=== PATIENT | male | born 1960 | race Hispanic/Latino ===

== ENCOUNTER 2016-05-13 15:02 | Inpatient (IN) | payer MEDICARE, OTHER ==
--- NOTE | 2016-05-13 16:05 | ED PDOC ---
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 he denies lightheadness, chest pain, dizziness, sob, or syncope but is unsure how he fell. Past Medical History - Infectious Disease Hx of Infectious Diseases: None - Tetanus Immunization Tetanus Immunization: Up to Date - Cardiac Hx Pacemaker: No - Pulmonary Hx Respiratory Disorders: Yes Hx Chronic Obstructive Pulmonary Disease (COPD): Yes - Neurological Hx Paralysis: No Other/Comment: nuropathy. - HEENT Hx HEENT Disorder: No - Renal Hx Renal Disorder: No - Endocrine/Metabolic Hx Endocrine Disorders: Yes Other/Comment: lymes - Hematological/Oncological Hx Blood Transfusions: No - Integumentary Hx Dermatological Disorder: No - Musculoskeletal/Rheumatological Hx Musculoskeletal Disorders: Yes Hx Gout: Yes - Gastrointestinal Hx Gastrointestinal Disorders: No - Genitourinary/Gynecological Hx Genitourinary Disorders: No - Psychiatric Hx Emotional Abuse: No Hx Physical Abuse: No Hx Substance Use: No - Surgical History Hx Cardiac Catheterization: Yes Hx Cholecystectomy: Yes Hx Gastric Bypass Surgery: Yes (Sleeve) - Anesthesia Hx Anesthesia: Yes Hx Anesthesia Reactions: No Hx Malignant Hyperthermia: No - Suicidal Assessment Feels Threatened In Home Enviroment: No Family/Social History Family/Social History: Other (nc) Smoking Status: Never Smoked Hx Alcohol Use: Yes ([employer]) Hx Substance Use: No Allergies/Home Meds Allergies/Adverse Reactions: Allergies cefuroxime axetil [From Ceftin] Allergy (Verified 05/13/16 15:18) ANAPHYLAXIS iodine Allergy (Verified 05/13/16 15:18) ANAPHYLAXIS Home Medications: Home Meds Medication Instructions Recorded Confirmed Allopurinol 300 mg PO DAILY 02/26/15 05/13/16 Gabapentin [Neurontin] 2,700 mg PO DAILY 02/26/15 05/13/16 Omeprazole [Prilosec] 20 mg PO DAILY 02/26/15 05/13/16 Cetirizine HCl [Zyrtec Allergy] 10 mg PO DAILY 05/23/15 05/13/16 Diclofenac Sodium [Voltaren] 75 mg PO BID 05/23/15 05/13/16 Folic Acid 1 mg PO DAILY 05/23/15 05/13/16 Alprazolam [Xanax] 2 mg PO TID 06/07/15 05/13/16 Ergocalciferol (Vitamin D2) 50,000 iu PO WED 08/21/15 05/13/16 [Vitamin D] Review of Systems - Physician Review All systems were reviewed & negative as marked: Yes - Review of Systems Constitutional: absent: Fevers Eyes: Vision Changes (chronic) Respiratory: absent: SOB, Cough Cardiovascular: absent: Chest Pain Gastrointestinal: absent: Abdominal Pain, Nausea, Vomiting Genitourinary Male: absent: Dysuria Musculoskeletal: Back Pain, Neck Pain Neurological: Headache Physical Exam Vital Signs Reviewed: Yes Vital Signs Temp Pulse Resp BP Pulse Ox 05/13/16 15:13 98.7 F 60 22 176/108 H 100 - Systems Exam Head: Present: Atraumatic, Normocephalic Pupils: Present: PERRL Extroacular Muscles: Present: EOMI Mouth: Present: Moist Mucous Membranes Neck: Present: Normal Range of Motion, MIDLINE TENDERNESS Respiratory/Chest: No: Respiratory Distress, Accessory Muscle Use, Tender to Palpation Cardiovascular: Present: Regular Rate and Rhythm Abdomen: No: Tenderness, Distention Back: Present: Midline Tenderness (lower thoracic and lumbar) Upper Extremity: Present: Normal ROM, NORMAL PULSES, Tenderness (left upper arm and lateral shoulder), Neurovascularly Intact. No: Deformity Lower Extremity: Present: NORMAL PULSES, Neurovascularly Intact, Other (nl rom of knees and hips) Neurological: Present: GCS=15, CN II-XII Intact, Motor Func Grossly Intact, Normal Sensory Function Skin: Present: Warm, Dry Psychiatric: Present: Alert, Oriented x 3 Medical Decision Making - RAD Interpretation Radiology Orders: 05/13/16 16:00 CERVICAL SPINE W/O CONTRAST [CT] Stat HEAD W/O CONTRAST [CT] Stat CHEST ONE VIEW [RAD] Stat 05/13/16 16:01 DORSAL (THORACIC) SPINE [RAD] Stat HIP MIN 2V W/ PELVIS LT [RAD] Stat LS SPINE WITH OBL > 18 YRS OLD [RAD] Stat SHOULDER LEFT [RAD] Stat Disposition/Present on Arrival - Present on Arrival History of DVT/PE: Yes History of Uncontrolled Diabetes: No Urinary Catheter: No History of Decub. Ulcer: No History Surgical Site Infection Following: None
[2016-05-13 16:19] LABS: ADD MANUAL DIFF? NO
[2016-05-13 17:22] LABS: ALB/GLOB RATIO 1.2 (1.1-1.8); ALKALINE PHOSPHATASE 53 U/L (38-133); ALT/SGPT 15 U/L (7-56); AST/SGOT 41 U/L (15-59); BILIRUBIN,TOTAL 0.9 mg/dL (0.2-1.3); BLOOD UREA NITROGEN 17 mg/dL (7-21); CALCIUM 8.8 mg/dL (8.4-10.5); CARBON DIOXIDE 28 mmol/L (21-33); CHLORIDE 101 mmol/L (98-107); GFR AFRICAN-AMERICAN > 60; GLUCOSE,RANDOM 97 mg/dL (70-110); POTASSIUM 4.3 mmol/L (3.6-5.0); SODIUM 138 mmol/L (132-148); TOTAL PROTEIN 6.7 g/dL (5.8-8.3)
[2016-05-13 17:32] LABS: TROPONIN I 0.03 ng/mL
--- NOTE | 2016-05-13 17:58 | CT ---
CT cervical spine dated 05/13/2016. History: Trauma. Contiguous helical/transaxial sections of the cervical spine performed in standard fashion. Additional 2 dimensional sagittal and coronal reformats provided. Comparison made with CT scan of the cervical spine dated 02/26/2015. Total exam DLP = 708.05 mGy-cm. This CT exam was performed using one or more of the following dose reduction techniques: Automated exposure control, adjustment of the mA and/or kV according to patient size, and/or use of iterative reconstruction technique. Findings: The current study reveals no acute displaced or compression fracture. Vertebral bodies exhibit relatively normal stature. There is straightening of the normal cervical lordosis which could be due to patient positioning in the gantry however element of muscle spasm may contribute. . The vertebral bodies are otherwise normally aligned. Degenerative spondylosis seen most notably affecting C5-C6 and C6-C7 levels. At the C5-C6 level, there is disc space narrowing with cortical endplate irregularity as well as anterior and smaller posterior osteophyte formation. Small irregular disc bulge ridge complex asymmetrically larger on the left than right and contiguous with hypertrophic uncovertebral joints. Facets also hypertrophic. Changes result in central canal narrowing and moderate cord compression. . Exit foramina are stenotic bilaterally. At the C6-C7 level, minor anterior disc space narrowing with with small anterior osteophyte formation. Minimal asymmetric central and left-sided focal disc bulge. Changes appear to result in mild narrowing of the canal and possibly some mild cord compression centrally and to the left. The the left exit foramen appears narrowed and right exit foramen adequate. At the C4-C5 level, there is adequate disc height. No disc herniation. Minimal degenerative facet joint changes on the left side. Central canal and exit foramina appear adequate. At the C3-C4 level, there is adequate disc height. Minor degenerative squaring of the uncovertebral joints. Facets are hypertrophic right greater than left. Exit foramina are narrowed bilaterally right more so than left. The prevertebral and paraspinal soft tissues unremarkable. Note is made of small calcification in the posterior soft tissues at the C3 level likely representing calcification of the ligamentum nuchae. . Lung apices are clear. Impression: No acute fractures. Multilevel degenerative spondylosis most notably affecting the C5-C6 level as detailed above.
--- NOTE | 2016-05-13 18:10 | CT ---
CT scan brain dated 05/13/2016. Axial computed tomography images were obtained through the head/brain without intravenous contrast material. Comparison made with CT scan brain dated 05/23/2015. This CT exam was performed using one or more of the following dose reduction techniques: Automated exposure control, adjustment of the mA and/or kV according to patient size, and/or use of iterative reconstruction technique. Radiation dose: Total exam DLP = 852.44 mGy-cm. Findings There is a wedge-shaped area of low attenuation in the left mid to inferior frontal region that is of uncertain etiology however could represent a non hemorrhagic contusion, or sequela of old trauma/ ischemia. Recommend followup on studies such as MRI. In addition, there may also be some minimal chronic periventricular white matter ischemic changes. Note made of of mild vascular calcifications of both carotid siphons and vertebral arteries. The ventricular and sulcal size are within range of normal for this patient's stated age. No obvious extra-axial mass or collection identified on this noncontrast study. There are no acute calvarial fractures. The visualized paranasal and mastoid air complexes well-developed. Minimal mucosal thickening noted within a few ethmoid air cells. Impression: There is a wedge-shaped area of low attenuation in the left inferior frontal lobe which is of uncertain etiology. Rule out sequela of nonhemorrhagic contusion however sequela of old trauma or ischemia cannot be completely excluded. Follow-up MRI is recommended. Note these findings were discussed with Dr. Cooper at approximately 6 :08 p.m. with written down and read back verification.
[2016-05-13] MEDS ORDERED: Sodium Chloride 0.9% 1,000 ML IV STA (18:26)
[2016-05-13 18:28] LABS: BASO # 0.02 K/mm3 (0.0-2.0); BASO % 0.2 % (0.0-3.0); EOS % 0.3 % (1.5-5.0); GRAN # 10.12 (1.4-6.5); GRAN % 82.6 % (50.0-68.0); HEMATOCRIT 38.1 % (42.0-52.0); LYMPH # 1.1 (1.2-3.4); LYMPH % 9.2 % (22.0-35.0); MEAN CORPUSCULAR HEMOGLOBIN 32.2 pg (25.0-35.0); MEAN CORPUSCULAR HGB CONC 33.9 g/dl (31.0-37.0); MEAN PLATELET VOLUME 10.4 fl (7.0-11.0); MONO # 0.9 (0.1-0.6); MONO % 7.7 % (1.0-6.0); PLATELET COUNT 148 10^3/uL (120.0-450.0); WHITE BLOOD COUNT 12.2 10^3/ul (4.5-11.0)
[2016-05-13] MEDS: Morphine 4 mg/ml ISec IVP STA ×2 (19:16→19:22)
[2016-05-13] MEDS: Ergocalciferol 50,000 Intl Units Cap PO SCH (19:55)
[2016-05-13 23:02] VITALS: BMI 41.1
[2016-05-13] MEDS ORDERED: Oxycodone/Acetaminophen 5/325 mg Tab PO PRN (23:08)
--- NOTE | 2016-05-14 08:11 | RAD ---
PROCEDURE: CHEST RADIOGRAPH, 1 VIEW HISTORY: fall COMPARISON: 02/26/2015 FINDINGS: LUNGS: Clear. PLEURA: No pneumothorax or pleural fluid seen. CARDIOVASCULAR: Normal. OSSEOUS STRUCTURES: No significant abnormalities. VISUALIZED UPPER ABDOMEN: Normal. OTHER FINDINGS: None. IMPRESSION: No active disease.
--- NOTE | 2016-05-14 08:12 | RAD ---
PROCEDURE: Radiographs of the Left Shoulder HISTORY: fall pain COMPARISON: No prior. FINDINGS: BONES: Normal. No fracture. JOINTS: Acromioclavicular degenerative arthritis noted. Glenohumeral articulation unremarkable. SOFT TISSUES: Normal. OTHER FINDINGS: None. IMPRESSION: Acromioclavicular degenerative arthritis. No fracture.
--- NOTE | 2016-05-14 08:15 | RAD ---
PROCEDURE: Radiographs of the Lumbar Spine. Zero 8 HISTORY: fall pain COMPARISON: No prior. FINDINGS: BONES: Technically limited. No fracture identified. Grade 1 anterolisthesis at L5-S1. No clear evidence of spondylolysis. Evaluation limited. DISC SPACES: Unremarkable. OTHER FINDINGS: Vena caval filter. Possible porcelain gallbladder. IMPRESSION: Grade 1 spondylolisthesis of L5-S1 without definite spondylolysis. No acute fracture. Technically limited examination. Possible porcelain gallbladder.
--- NOTE | 2016-05-14 08:15 | RAD ---
HISTORY: fall pain COMPARISON: No prior. FINDINGS: BONES: Alignment maintained. No fracture. DISC SPACES: Normal. SOFT TISSUES: Normal. OTHER FINDINGS: None. IMPRESSION: Normal radiographs of the thoracic spine.
--- NOTE | 2016-05-14 08:44 | RAD ---
PROCEDURE: Left Hip and pelvis X-ray Radiographs. HISTORY: fall pain COMPARISON: None. FINDINGS: BONES: Normal. No fracture. JOINTS: Normal. SOFT TISSUES: Normal. OTHER FINDINGS: None. IMPRESSION: Negative study
--- NOTE | 2016-05-14 10:39 | CON ---
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 He slipped and fell while cleaning the stairway just prior to admission, which was 05/13/2016. Contusions, left hip, left shoulder and so was admitted to the hospital with e xtreme pain. X-rays of the hip and shoulder showed no fracture. X-rays of the spine dorsal, lumbar, and cervical showed no pathology such as fracture, just mild osteoarthritis of the dorsal lumbar spi ne and his cervical spine, but neurologically he is fine other than the mild neuropathy, he says. He also can do straight leg raising both lower extremities. Range of motion of the hip is very good as well as the shoulder. He does have osteoarthritis of the AC joint, left shoulder, and osteoarthriti s of the left knee, but he has been used to this. We are going to get him up out of bed, do aggressi ve therapy to minimize his bad effects of bed rest., to eliminate bed rest and get him moving and get his muscles strong so he could ambulate with a walker again, which he used before. So, because of h is large frame, we have to make sure these muscles get as much strength is possible, so he does not f all again. Hopefully, he could head home after the short stay at the [facility], but he must d o therapy at home to maintain his strength so things like this does not happen again. FINAL DIAGNOSIS: Multiple contusions mainly the left shoulder, left hip, and the dorsal lumbar spine . Parveen Mares DO cc: [id number] TT: 05/14/2016 10:38:53 Confirmation # [id number] Dictation # [id number] imani
--- NOTE | 2016-05-14 12:23 | CON ---
DATE: 05/14/2016 NEUROLOGY CONSULTATION REPORT REASON FOR CONSULTATION: Episode of passing out and abnormal CT head. HISTORY OF PRESENTING ILLNESS: The patient is a 56-year-old male who was brought in after he passed out. The patient said that he blacked out and fell a flight of stairs. The patient did not have any urinary incontinence or tongue-biting. He denies any focal weakness in arms or legs. As per the pa tient in the past, he was worked up for multiple sclerosis. He had white matter lesions on the MRI. He had a lumbar puncture done in the past, which was normal. Denies any focal weakness in arms or l egs. REVIEW OF SYSTEMS: Denies any headache, dizziness, chest pain. Positive for left shoulder pain. De nies any constipation, diarrhea, dysuria, pyuria, cough or sputum production. PAST MEDICAL HISTORY: Includes neuropathy. MEDICATIONS: At home included Prilosec, Neurontin, folic acid, Voltaren, Zyrtec, Xanax, and allopuri nol. ALLERGIES: CEFUROXIME, IODINE, AND AXETIL. SOCIAL HISTORY: He denies smoking, use of alcohol or illicit drugs. FAMILY HISTORY: Noncontributory to the case. PHYSICAL EXAMINATION: GENERAL: The patient is a middle-aged male, sitting in no acute distress. VITAL SIGNS: His blood pressure is 140/86. Heart rate is 69 per minute, breathing at the rate of 16 per minute, temperature 98 degrees Fahrenheit. HEENT: Normocephalic, atraumatic. NECK: Supple. There are no carotid bruits. LUNGS: Clear. CARDIOVASCULAR: S1, S2 audible. No murmurs. ABDOMEN: Soft, nontender. Bowel sounds present. NEUROLOGIC EXAMINATION: MENTAL STATUS: The patient is awake, alert, oriented to time, place, and person. Speech is fluent. Naming and repetition are normal. Memory and cognition are intact. CRANIAL NERVES: Pupils are 4 mm bilaterally reactive to light. Visual mcgrath are full. Extraocular movements are intact. There is no facial asymmetry. Palate is upgoing bilaterally, and tongue is m idline. MOTOR: Tone is normal. Power is 5/5 bilaterally in all extremities. Reflexes +2 and symmetrical in upper extremities, +1 in bilateral knee jerk and absent in the ankle. Plantars are downgoing bilate rally. CEREBELLAR: Ssyaze-ai-qowy shows no dysmetria. Gait is deferred at the moment. SENSORY: There is decreased soft touch in the feet. LABORATORY DATA: Labs reviewed show WBC of 12.2, hemoglobin 12.9, hematocrit 38.1, and platelets of 148. Sodium is 138, potassium 4.3, chloride 101, carbon dioxide 28, BUN of 17, creatinine 1.0, and g lucose of 112. He had a CT scan of the head done, which showed a wedge-shaped area of low attenuation in the left i nferior frontal lobe, which is of uncertain etiology. IMPRESSION: 1. Syncope with the fall. Rule out seizure versus cardiac arrhythmias. 2. Abnormal CT scan of the head. 3. History of peripheral neuropathy. RECOMMENDATIONS: 1. The patient to have MRI of the brain with and without contrast. 2. The patient also to have an electroencephalogram. 3. The patient to have cardiac monitoring to look for evidence of any cardiac arrhythmia. 4. Please continue other treatment and supportive care. Thank you for the opportunity to participate in the care of this patient. Elizabeth Puentes MD cc: [id number] TT: 05/14/2016 12:23:00 Confirmation # [id number] Dictation # [id number] imani
--- NOTE | 2016-05-14 12:41 | HP ---
CHIEF COMPLAINT AND HISTORY OF PRESENT ILLNESS: This is a 56-year-old male who is coming into the [facility] with complaints of pain in the shoulders and the back and the neck. The patient states that h e had fallen. He says he had passed out. He had fallen down 8 stairs. He has no complaints of any chest pain. No nausea, no vomiting, no dysuria or frequency, no nocturia. He says he was having 5/1 0 pain. REVIEW OF SYSTEMS: All other review of symptoms are within normal limits. ALLERGIES: CEFUROXIME, IODINE. MEDICATIONS: Allopurinol, Neurontin, Prilosec, Zyrtec, Voltaren, folic acid, Xanax. SOCIAL HISTORY: No drug use, drinks socially. FAMILY HISTORY: Noncontributory. PAST MEDICAL HISTORY: Dyslipidemia. PAST SURGICAL HISTORY: Cholecystectomy, gastric bypass, fibromyalgia, spinal stenosis. PHYSICAL EXAMINATION: VITAL SIGNS: Temperature is 98, pulse 69, blood pressure 140/86, respirations 18, O2 saturation 97%. GENERAL: Patient lying in bed, flat, and in no apparent distress. HEAD AND NECK EXAM: Atraumatic, normocephalic. Conjunctivae are pink. Throat clear and mouth with moist mucosa. Oropharynx benign. EYES: Extraocular movements are intact. PERRLA. NECK: Supple. No JVD, thyromegaly, or adenopathy. No bruits. HEART: S1 and S2 regular rate and rhythm. No murmurs, rubs, or gallops. LUNGS: Clear to auscultation bilaterally. No wheezing rales or rhonchi appreciated. No retraction s on exam. ABDOMEN: Soft, nontender, nondistended. Bowel sounds are positive in all quadrants. No rebound. No hepatosplenomegaly. EXTREMITIES: No cyanosis, clubbing, or edema. In the left arm, there is ecchymotic area that is l arge. It is about 7-8 cm. NEURO: No facial asymmetry, tongue is midline, no uvula deviation. Power is 5/5 in upper extremity and 5/5 in lower extremity. Sensation is normal in upper extremity and lower extremity. PSYCH: Awake, alert, oriented x3. No anxiety or depression symptoms. Good insight. Normal affec t. : No CVA tenderness VASCULAR: 2+ pulses in carotid and pedal pulses. SKIN: No erythema or abnormal nodules noted. SPINE: Normal curvature. LYMPHADENOPATHY: No anterior cervical or posterior cervical adenopathy. No inguinal adenopathy. LABORATORY DATA: Labs have been reviewed. White count of 12.2. Creatinine is 1.0. He has had multiple x-rays. Thoracic spine x-ray done shows normal. The patient's shoulder x-ray sh ows no fractures. LS spine x-ray shows no fractures. There is L5-S1 spondylosis. He has a hip and pelvic x-ray that shows no fractures. CT of the head done shows wedge-shaped area o f low attenuation in the left inferior frontal lobe. Chest x-ray done shows no active disease. The patient had a cervical spine CT done that shows no acu te fractures, multiple degenerative changes in C5-C6. ASSESSMENT: 1. Syncope. 2. Neuropathy. 3. Anxiety. 4. Hyperuricemia. PLAN: The patient is comfortable, is going to be admitted to the hospital. I am concerned about a s yncopal episode. I will get cardiology and pulmonary evaluation. The patient is on gabapentin for n europathy. The patient has an MRI that needs to be done as well as an echo. We will continue to fol low closely. Place the patient on telemetry monitoring. Constantin Cervantes MD cc: [id number] TT: 05/14/2016 12:40:55 sn
[2016-05-14] MEDS: Pantoprazole 40 mg EC Tab PO SCH (12:58)
--- NOTE | 2016-05-14 15:31 | CON ---
DATE: 05/14/2016 HISTORY OF PRESENT ILLNESS: The patient is a 55-year-old male who presents after a fall down a fligh t of stairs complaining of neck, back and chest pain. PAST MEDICAL HISTORY: Notable for multiple neurologic issues related to his Lyme disease. The patie nt's past medical history also includes neuropathy. He denies smoking, denies history of cardiac dis ease. His latest evaluation included a stress test which showed normal ejection fraction of 73%. No angina noted. No shortness of breath noted. SOCIAL HISTORY: Denies smoking. REVIEW OF SYSTEMS: A 14-point review of systems was reviewed. The patient is depressed secondary to his Lyme disease and complains of diffuse body aches. PHYSICAL EXAMINATION: VITAL SIGNS: Blood pressure 140/86, heart rate is in the 60s. NECK: Negative JVD. LUNGS: Without rales. HEART: With S1, S2. EXTREMITIES: Without edema. LABORATORIES: Includes hemoglobin of 12.9. Chemistries: The troponin is negative x 1. The glucose is 112. EKG shows normal sinus rhythm with no acute changes. Echocardiogram is pending. IMPRESSION: 1. Status post fall. 2. Questionable syncope. 3. No cardiac arrhythmias noted. 4. Lyme disease. 5. Neuropathy. Given these findings, the patient is scheduled for an echocardiogram. There is no evidence so far of a cardiac cause of his fall down the stairs. Gerald Marcelo MD cc: [id number] TT: 05/14/2016 15:30:28 Confirmation # [id number] Dictation # [id number] reno
--- NOTE | 2016-05-14 15:49 | CARD ---
APPROVED REPORT EXAM: Two-dimensional and M-mode echocardiogram with Doppler and color Doppler. INDICATION Syncope 2D DIMENSIONS Left Atrium (2D)4.2 (1.6-4.0cm)IVSd1.2 (0.7-1.1cm) LVDd5.2 (3.9-5.9cm)PWd1.2 (0.7-1.1cm) LVDs3.3 (2.5-4.0cm)FS (%) 36.1 % LVEF (%)65.3 (>50%) M-Mode DIMENSIONS Aortic Root3.50 (2.2-3.7cm)Aortic Cusp Exc.2.10 (1.5-2.0cm) Aortic Valve AoV Peak Iiyjuesv553.0cm/Faustina Peak GR.9mmHg Mitral Valve MV E Vtccmpgj83.7cm/sMV A Tzkrvrjn98.4cm/sE/A ratio1.1 TDI E/Lateral E'0.0E/Medial E'0.0 Tricuspid Valve TR Peak [id number]/sRAP [id number] Peak Gr.13mmHg [id number] LEFT VENTRICLE The left ventricle is normal size. There is borderline concentric left ventricular hypertrophy. The left ventricular function is normal. The left ventricular ejection fraction is within the normal range. There is normal LV segmental wall motion. Transmitral Doppler flow pattern is Grade I-abnormal relaxation pattern. RIGHT VENTRICLE The right ventricle is mildly dilated. There is normal right ventricular wall thickness. The right ventricular systolic function is normal. ATRIA The left atrium is borderline dilated. The right atrium size is normal. AORTIC VALVE The aortic valve is not well visualized. MITRAL VALVE The mitral valve is not well visualized. TRICUSPID VALVE There is no pulmonary hypertension. GREAT VESSELS The aortic root is normal in size. The IVC is normal in size and collapses >50% with inspiration. PERICARDIAL EFFUSION There is no pericardial effusion. <Conclusion> Poor Echo window The left ventricle is normal size. There is borderline concentric left ventricular hypertrophy. The left ventricular function is normal. The left ventricular ejection fraction is within the normal range. Transmitral Doppler flow pattern is Grade I-abnormal relaxation pattern.
--- NOTE | 2016-05-14 18:53 | CARD ---
APPROVED REPORT EKG Measurement Heart [id number] <Conclusion> Normal sinus rhythm Right bundle branch block Abnormal ECG
[2016-05-15 08:25] LABS: ADD MANUAL DIFF? NO
[2016-05-15 08:28] LABS: BASO # 0.01 K/mm3 (0.0-2.0); BASO % 0.2 % (0.0-3.0); EOS # 0.1 (0.0-0.7); EOS % 2.3 % (1.5-5.0); GRAN # 3.48 (1.4-6.5); GRAN % 56.5 % (50.0-68.0); HEMATOCRIT 29.1 % (42.0-52.0); LYMPH # 1.6 (1.2-3.4); LYMPH % 25.7 % (22.0-35.0); MEAN CELL VOLUME 93.9 fL (80.0-105.0); MEAN CORPUSCULAR HEMOGLOBIN 31.6 pg (25.0-35.0); MEAN CORPUSCULAR HGB CONC 33.7 g/dl (31.0-37.0); MEAN PLATELET VOLUME 9.3 fl (7.0-11.0); MONO # 0.9 (0.1-0.6); MONO % 15.3 % (1.0-6.0); PLATELET COUNT 103 10^3/uL (120.0-450.0); RED CELL DISTRIBUTION WIDTH 14.5 % (11.5-14.5); WHITE BLOOD COUNT 6.2 10^3/ul (4.5-11.0)
[2016-05-15] MEDS: Pantoprazole 40 mg EC Tab PO SCH (08:30)
--- NOTE | 2016-05-15 08:36 | PN ---
DATE: 05/15/2016 The patient is asymptomatic, but is depressed. PHYSICAL EXAMINATION: VITAL SIGNS: Blood pressure is 140/86, the heart rate is in the 60s, normal sinus rhythm. NECK: Negative JVD. LUNGS: Without rales. HEART: Revealed S1, S2. EXTREMITIES: Without edema. Hemoglobin is 12.9. Chemistries: BUN and creatinine are unremarkable. Echocardiogram shows good LV function with no LV outflow obstruction. 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 IMPRESSION: 1. Status post fall. 2. No cardiac etiology identified for possible syncope. 3. History of Lyme disease. 4. Neuropathy. Given these findings, there is no cardiac cause identified for his possible near syncope. His cardiac status is stable. Review of his previous stress test, which was not diagnostic, but poss ible ischemia, in which the patient refused catheterization in the past. The patient is currently ch est pain free. We will discontinue telemetry today. His depression might benefit from evaluation with psychiatry. Gerald Marcelo MD cc: [id number] TT: 05/15/2016 08:35:21 Confirmation # [id number] Dictation # [id number] en
[2016-05-15 08:39] LABS: ALB/GLOB RATIO 1.1 (1.1-1.8); ALKALINE PHOSPHATASE 43 U/L (38-133); ALT/SGPT 32 U/L (7-56); AST/SGOT 45 U/L (15-59); BILIRUBIN,TOTAL 0.9 mg/dL (0.2-1.3); BLOOD UREA NITROGEN 19 mg/dL (7-21); CALCIUM 8.5 mg/dL (8.4-10.5); CARBON DIOXIDE 30 mmol/L (21-33); CHLORIDE 100 mmol/L (95-110); GFR AFRICAN-AMERICAN > 60; GLUCOSE,RANDOM 97 mg/dL (70-110); POTASSIUM 4.5 mmol/L (3.6-5.0); SODIUM 137 mmol/L (132-148); TOTAL PROTEIN 6.2 g/dL (5.8-8.3)
[2016-05-15] MEDS ORDERED: Gadodiamide 287 MG/ML VIAL (20ML) IV ONE (09:02)
--- NOTE | 2016-05-15 09:46 | EEG ---
DATE: 05/14/2016 INTRODUCTION: This is a digitally recorded EEG monitoring using standard EEG montages. BACKGROUND RHYTHM: The EEG shows a background activity of 9 Hz alpha activity in parietooccipital re gion. The EEG activity is bilaterally symmetrical and synchronous. There is attenuation of the back ground activity on eye opening. No sleep recording was noted. ABNORMAL POTENTIALS: No spikes, sharp waves or focal slowing was seen. PHOTIC STIMULATION AND HYPERVENTILATION: Photic stimulation did not reveal any abnormality. Hyperve ntilation was not performed. IMPRESSION: Normal electroencephalogram. No epileptiform activity seen in this electroencephalogram recording. Elizabeth Puentes MD cc: [id number] TT: 05/15/2016 09:45:55 Confirmation # [id number] Dictation # [id number] mn
[2016-05-15] MEDS: Ergocalciferol 50,000 Intl Units Cap PO SCH (09:56)
--- NOTE | 2016-05-15 10:04 | PN ---
DATE: 05/15/2016 SUBJECTIVE: The patient is lying on the bed, in no acute distress. Denies having any headache or di zziness. PHYSICAL EXAMINATION: VITAL SIGNS: His blood pressure is 109/75, heart rate is 60 per minute, breathing at a rate of 16 pe r minute, temperature is 97.9 degrees Fahrenheit. HEENT: Normocephalic, atraumatic. NECK: Supple. There are no carotid bruits. LUNGS: Clear. CARDIOVASCULAR: S1, S2 audible. No murmurs. ABDOMEN: Soft and nontender with bowel sounds present. NEUROLOGIC EXAMINATION: MENTAL STATUS: The patient is awake and alert, oriented to time, place, person. Speech is fluent. Naming and repetition normal. Memory and cognition appears intact. CRANIAL NERVE EXAMINATION: Pupils are 3 mm bilaterally reactive to light. Visual mcgrath are full. Extraocular movements are intact. There is no facial asymmetry. Palate is upgoing bilaterally and t ongue is midline. MOTOR EXAMINATION: Tone is normal. Power in the upper extremities is 5/5. Power in the lower extre mity 4 to 5/5 bilaterally. Plantars downgoing bilaterally. LABORATORY DATA: Labs reviewed, shows WBC of 6.2, hemoglobin 9.8, hematocrit 29.1, platelets of 103. His sodium is 137, potassium 4.5, chloride 100, carbon dioxide 30, BUN of 19, creatinine 1.0 and gl ucose of 97. IMPRESSION: 1. Status post syncope. 2. History of peripheral neuropathy. 3. Abnormal CT scan of the head. RECOMMENDATIONS: 1. The patient had an electroencephalogram done which is normal. 2. The patient just had MRI of the brain done, report is awaited. 3. The patient to have physical therapy for gait imbalance. 4. The patient to be continued to have cardiac monitoring to rule out any cardiac arrhythmias. 5. Please follow up the report of MRI of the brain. 6. The patient is a good candidate for subacute rehab placement. 7. Please continue other treatment and supportive care. Thank you for the opportunity to participate in the care of this patient. Elizabeth Puentes MD cc: [id number] TT: 05/15/2016 10:03:56 Confirmation # [id number] Dictation # [id number] jn
--- NOTE | 2016-05-15 10:18 | DS ---
This is a 56-year-old male who came into the hospital after he had a fall down the stairs. He had a syncopal episode. The patient is currently on telemetry monitoring. He is being followed by cardiol ogy and neurology. He states he feels well, has no complaints, no headaches or dizziness, no nausea, no vomiting. An echo done shows LV is normal size, there is borderline LVH, his EF is within normal limits. The patient is awaiting his MRI to be done. He denies palpitations, no headaches, no dizzi ness, no nausea. PHYSICAL EXAMINATION: VITAL SIGNS: Temperature is 98, pulse is 69, blood pressure is 140/86, respirations are 18, O2 satur ation 97%. GENERAL: The patient comfortable, in no acute distress. HEENT: Anicteric sclerae. Moist mucosa. NECK: No JVD or adenopathy. CARDIAC: S1/S2. No murmurs. No rubs. Regular. RESPIRATORY: Clear to auscultation bilaterally. No wheezes, rales, or rhonchi. Good air entry. ABDOMEN: Bowel sounds are positive, soft, nontender, and nondistended. EXTREMITIES: No edema. Has 1+ pulses. ASSESSMENT: 1. Syncope. 2. Peripheral neuropathy. 3. Anxiety. 4. Hyperuricemia. 5. Obese with body mass index of 41. PLAN: The patient is currently comfortable. He is on vitamin D. He is going to continue with Motri n for his pain. He prefers this over narcotics. He is on gabapentin for his neuropathy. He is on X anax for his anxiety. He is going to continue with allopurinol for his hypouricemia. An MRI and an EEG has been ordered and is pending. We will await further input from the neurologist as well as the results of these tests. If there are no significant abnormalities, we will discharge the patient ho me. The patient was also seen by Dr. Mares, no surgical intervention is needed at this point. Constantin Cervantes MD cc: [id number] TT: 05/15/2016 10:18:18 cn
--- NOTE | 2016-05-15 11:27 | MRI ---
PROCEDURE: MRI BRAIN WITH AND WITHOUT CONTRAST HISTORY: abnormal ct head COMPARISON: CT scan 05/13/2016 TECHNIQUE: Multiplanar, multisequence MR images of the brain were obtained with and without intravenous contrast enhancement. 20 cc of Omniscan FINDINGS: HEMORRHAGE: None DWI: No evidence of an acute or early subacute infarction. BRAIN PARENCHYMA: No mass,mass effect or edema. The area of hypodensity seen in the left frontal lobe on CT does not show a corresponding abnormality on MRI. This was most likely artifactual. Mild chronic microvascular changes are seen in the periventricular white matter. ENHANCEMENT: No abnormal intracranial enhancement. VENTRICLES: Unremarkable. No hydrocephalus. CRANIUM: Unremarkable. ORBITS: Grossly unremarkable. PARANASAL SINUSES/MASTOIDS: Clear VASCULAR SYSTEM: Skull base flow voids intact. OTHER FINDINGS: None . IMPRESSION: Unremarkable pre and post contrast enhanced MRI of the brain.
[2016-05-16] MEDS ORDERED: oxyCODONE 10 mg Immediate Release Tab PO STA (08:12)
[2016-05-16] MEDS: Pantoprazole 40 mg EC Tab PO SCH (09:50)
[2016-05-16] MEDS: Ergocalciferol 50,000 Intl Units Cap PO SCH (09:52)
--- NOTE | 2016-05-16 10:30 | DS ---
SUBJECTIVE: This is a 56-year-old male who had come into the hospital and had a syncopal episode. T he patient was evaluated by cardiology and neurology. Please see the note that was dictated yesterda y on 05/15/2016 for details. The patient did have an MRI. It was unremarkable, pre and post-contrast MRI. The initial CAT scan that was seen was considered an artifact. The patient had an EEG done marina t was normal. Physical therapy evaluated the patient, and he does not require inpatient physical the rapy. The patient will be discharged home to follow up as an outpatient. No complaints of any chest pain or shortness of breath, or headaches or dizziness. PHYSICAL EXAMINATION: VITAL SIGNS: Temperature is 98.8, pulse is 71, blood pressure 148/90, respirations 18, O2 saturation 98%. GENERAL: The patient comfortable, in no acute distress. HEENT: Anicteric sclerae. Moist mucosa. NECK: No JVD or adenopathy. CARDIAC: S1/S2. No murmurs. No rubs. Regular. RESPIRATORY: Clear to auscultation bilaterally. No wheezes, rales, or rhonchi. Good air entry. ABDOMEN: Bowel sounds are positive, soft, nontender, and nondistended. EXTREMITIES: No edema. Has 1+ pulses. ASSESSMENT: 1. Syncope. 2. Peripheral neuropathy. 3. Anxiety. 4. Hyperuricemia. 5. Obese with a body mass index of 41. PLAN: The patient is on vitamin D replacement is going to continue with ibuprofen. He is going to be on Xa nax for his anxiety. He does have a history of PTSD and has been following with psychiatry as an out patient. He is willing to be on a heart healthy diet. CONDITION: Stable. I did speak to Dr. Marcelo regarding the case. He is okay that the patient be disc harged. ACTIVITIES: Increase as tolerated. Constantin Cervantes MD cc: [id number] TT: 05/16/2016 10:29:37 an
--- NOTE | 2016-05-16 11:33 | PN ---
DATE: 05/16/2016 SUBJECTIVE: The patient is comfortable without shortness of breath, without chest pain. PHYSICAL EXAMINATION: VITAL SIGNS: Blood pressure is 133/76, the heart rate is in the 70s. NECK: Negative JVD. LUNGS: Without rales. HEART: Reveals S1, S2. EXTREMITIES: Without edema. LABORATORIES: Echocardiogram has been unremarkable. IMPRESSION: 1. Status post syncope. 2. Status post fall with trauma. 3. History of Lyme disease. PLAN: Given these findings, I have reviewed his previous stress test with the patient in detail. I have discussed the small, but real possibility of still having significant coronary disease based on his stress test. I have discussed with the patient alternatives, including cardiac catheterization. After discussion of risk/benefit, the patient understands about cardiac catheterization and is agree able. We will schedule for Friday. Gerald Marcelo MD cc: [id number] TT: 05/16/2016 11:33:43 Confirmation # [id number] Dictation # [id number] tn
[2016-05-16 17:35] VITALS: BP 150/80; PULSE 70; RESP 18; TEMP 98.4; O2SAT 98
== END 2016-05-16 18:27 | disposition home or self-care (01) | DRG 605 ==
LOC: ED 15:02 → ERH 18:49 → 5RSO 22:08 → 3RSO 05-14 15:02 → OBSVTOIN 05-14 17:46
PROVIDERS: ADMIT Internal Medicine Nephrology; ATTEND Internal Medicine Nephrology
DX: S40.012A Contusion of left shoulder, initial encounter (principal); S70.02XA Contusion of left hip, initial encounter; S30.0XXA Contusion of lower back and pelvis, initial encounter; Z68.41 Body mass index [BMI] 40.0-44.9, adult; G62.9 Polyneuropathy, unspecified; M48.00 Spinal stenosis, site unspecified; F32.9 Major depressive disorder, single episode, unspecified; R55 Syncope and collapse; E78.5 Hyperlipidemia, unspecified; M79.7 Fibromyalgia; F41.9 Anxiety disorder, unspecified; E79.0 Hyperuricemia without signs of inflammatory arthritis and tophaceous disease; E66.9 Obesity, unspecified; F43.10 Post-traumatic stress disorder, unspecified; M17.12 Unilateral primary osteoarthritis, left knee; M19.012 Primary osteoarthritis, left shoulder; W10.9XXA Fall (on) (from) unspecified stairs and steps, initial encounter; B94.8 Sequelae of other specified infectious and parasitic diseases; Y93.E9 Activity, other interior property and clothing maintenance; Y92.9 Unspecified place or not applicable; Y92.008 Other place in unspecified non-institutional (private) residence as the place of occurrence of the external cause; Z98.84 Bariatric surgery status

== ENCOUNTER 2016-05-21 06:58 | Day surgery (SDC) | payer MEDICARE ==
[2016-05-17 12:08] VITALS: BMI 40.0
[2016-05-21] MEDS ORDERED: Lidocaine 2% Inj (20ml) ONE (07:27)
[2016-05-21] MEDS ORDERED: Phenylephrine 10 mg/ml Inj ONE (07:27)
[2016-05-21] MEDS ORDERED: Iohexol 350mgl/ml 50 ML ONE (07:28)
[2016-05-21] MEDS ORDERED: Iodixanol 320 MG/ML 100 ML BOTTLE IV ONE (07:28)
[2016-05-21] MEDS ORDERED: Iodixanol 320 MG/ML 200 ML BOTTLE IV ONE (07:28)
[2016-05-21] MEDS ORDERED: Nitroglycerin 50mg in D5W 250 ML IV ONE (07:28)
[2016-05-21 07:42] LABS: ADD MANUAL DIFF? NO
[2016-05-21 08:04] LABS: BASO # 0.02 K/mm3 (0.0-2.0); BASO % 0.5 % (0.0-3.0); EOS # 0.2 (0.0-0.7); EOS % 4.3 % (1.5-5.0); GRAN # 2.39 (1.4-6.5); GRAN % 54.7 % (50.0-68.0); HEMATOCRIT 28.2 % (42.0-52.0); LYMPH # 1.2 (1.2-3.4); MEAN CELL VOLUME 96.2 fL (80.0-105.0); MEAN CORPUSCULAR HEMOGLOBIN 31.7 pg (25.0-35.0); MEAN PLATELET VOLUME 9.3 fl (7.0-11.0); MONO # 0.6 (0.1-0.6); MONO % 13.5 % (1.0-6.0); PLATELET COUNT 145 10^3/uL (120.0-450.0); RED CELL DISTRIBUTION WIDTH 15.1 % (11.5-14.5); WHITE BLOOD COUNT 4.4 10^3/ul (4.5-11.0)
[2016-05-21 08:06] LABS: INR 1.08 (0.93-1.08); PARTIAL THROMBOPLASTIN TIME 26.4 Seconds (23.7-30.8)
[2016-05-21 08:08] LABS: BLOOD UREA NITROGEN 19 mg/dL (7-21); CALCIUM 8.4 mg/dL (8.4-10.5); CARBON DIOXIDE 32 mmol/L (21-33); CHLORIDE 100 mmol/L (98-107); CHOLESTEROL 123 mg/dL (130-200); GFR AFRICAN-AMERICAN > 60; GLUCOSE,RANDOM 86 mg/dL (70-110); POTASSIUM 4.2 mmol/L (3.6-5.0); SODIUM 135 mmol/L (132-148)
[2016-05-21] MEDS ORDERED: DiphenhydrAMINE 50 mg/ml Inj ONE (08:45)
[2016-05-21] MEDS ORDERED: Midazolam 2 MG/2 ML VIAL ONE ×2 (08:45→09:08)
[2016-05-21] MEDS ORDERED: Famotidine 20mg/50ml 50 ML IVPB ONE (08:46)
[2016-05-21] MEDS ORDERED: Sodium Chloride 0.9% 1,000 ML IV SCH (09:45)
[2016-05-21 09:58] VITALS: RESP 20; TEMP 98.1
--- NOTE | 2016-05-21 10:12 | CARDCATH ---
PROCEDURE DATE: 05/21/2016 HISTORY: The patient is a 56-year-old male who presents with chest pain and dyspnea. His stress ирина t was abnormal. The patient's past medical history is notable for Lyme disease, hypertension, palpitations, and recur rent chest pain. He suffers from obesity and hypercholesterolemia. Because of this, a cardiac alee terization was recommended. PROCEDURE: Left heart catheterization with coronary angiography and left ventriculogram. The right femoral artery was cannulated with a 6-Lithuanian sheath. There were no complications. The findings on catheterization revealed a left ventricle that contracted normally. Estimated ejecti on fraction is approximately 55%. His coronary anatomy revealed a right dominant circulation. The RCA was visualized and found to be unremarkable. The left main artery was unremarkable. The LAD and diagonal vessels revealed mild intimal irregularities without critical lesions. The circumflex artery and obtuse marginal branches were free of significant disease. Angio-Seal was used to close the femoral artery site. The patient tolerated the procedure well. In summary, the procedure revealed unremarkable coronary arteries with good LV function. Given these findings, the patient's stress test does not represent new coronary lesions. His dyspnea and palpitations are unrelated to his heart. Followup and instructions have been given to the patie nt in detail. Gerald Marcelo MD cc: [id number] TT: 05/21/2016 10:11:26 imani
[2016-05-21] MEDS ORDERED: Oxycodone/Acetaminophen 5/325 mg Tab ONE (13:16)
[2016-05-21] MEDS ORDERED: Oxycodone/Acetaminophen 5/325 mg Tab PO STA (13:21)
[2016-05-21 13:29] VITALS: PULSE 83
[2016-05-21 13:46] VITALS: BP 168/84; O2SAT 97
== END 2016-05-21 16:44 | disposition home or self-care (01) ==
LOC: CATH 06:58
PROVIDERS: ATTEND Internal Medicine Cardiovascular Disease
DX: R07.9 Chest pain, unspecified (principal); R00.2 Palpitations; I10 Essential (primary) hypertension; E78.00 Pure hypercholesterolemia, unspecified; E66.9 Obesity, unspecified; R94.39 Abnormal result of other cardiovascular function study
CPT/HCPCS: 36415; 80048; 80061; 85025; 85610; 85730; 86850; 86900; 93458; 99152; C1760; C1769; C2629; J1200; J1644; J2250; J2930; J3010; J7040 ×2; Q9967 ×2

== ENCOUNTER 2016-06-01 12:58 | Inpatient (IN) | payer MEDICARE, OTHER ==
--- NOTE | 2016-06-01 15:08 | ED PDOC ---
Arrival/HPI - General Chief Complaint: Abnormal Skin Integrity Time Seen by Provider: 06/01/16 13:23 Historian: Patient - History of Present Illness Narrative History of Present Illness (Text): 06/01/16 15:58 Patient is a 56 yo male, past medical history of left leg DVT, presents to ER complaining of swelling in his RIGHT leg for the past several days, with redness and pain and drainage that has developed over the past two days. He denies NEW left leg pain or swelling. States that he fell earlier in the month but has no new chest pain or shortness of breath or abdominal pain. No hemoptysis. No pleuritic chest pain. He has had pain to his left shoulder and back WITH MOVEMENTS "since I fell". Denies headache or shortness of breath. Denies hip or knee pain. Denies fevers or chills. Past Medical History - Infectious Disease Hx of Infectious Diseases: None - Tetanus Immunization Tetanus Immunization: Up to Date - Cardiac Hx Pacemaker: No - Pulmonary Hx Respiratory Disorders: Yes Hx Asthma: Yes Hx Chronic Obstructive Pulmonary Disease (COPD): Yes - Neurological Hx Paralysis: No Other/Comment: Neuropathy, fibromyalgia, chronic fatigue syndrome - HEENT Hx HEENT Disorder: No - Renal Hx Renal Disorder: No - Endocrine/Metabolic Hx Endocrine Disorders: Yes Other/Comment: lymes - Hematological/Oncological Hx Blood Transfusions: No - Integumentary Hx Dermatological Disorder: No - Musculoskeletal/Rheumatological Hx Musculoskeletal Disorders: Yes Hx Unsteady Gait: Yes Other/Comment: gout - Gastrointestinal Hx Gastroesophageal Reflux: Yes - Genitourinary/Gynecological Hx Genitourinary Disorders: No - Psychiatric Hx Emotional Abuse: No Hx Physical Abuse: No Hx Substance Use: No - Surgical History Hx Cholecystectomy: Yes Other/Comment: Gastric sleeve - Anesthesia Hx Anesthesia Reactions: No - Suicidal Assessment Feels Threatened In Home Enviroment: No Family/Social History Family/Social History: Unknown Family HX Smoking Status: Never Smoked Hx Alcohol Use: Yes ([employer]) Hx Substance Use: No Allergies/Home Meds Allergies/Adverse Reactions: Allergies cefuroxime axetil [From Ceftin] Allergy (Verified 06/01/16 13:15) ANAPHYLAXIS iodine Allergy (Verified 06/01/16 13:15) ANAPHYLAXIS Home Medications: Home Meds Medication Instructions Recorded Confirmed Allopurinol 100 mg PO DAILY 02/26/15 06/01/16 Omeprazole [Prilosec] 20 mg PO DAILY 02/26/15 06/01/16 Cetirizine HCl [Zyrtec] 10 mg PO DAILY 05/23/15 06/01/16 Diclofenac Sodium [Voltaren] 75 mg PO BID 05/23/15 06/01/16 Folic Acid 1 mg PO DAILY 05/23/15 06/01/16 Alprazolam [Xanax] 2 mg PO TID 06/07/15 06/01/16 Ergocalciferol (Vitamin D2) 50,000 iu PO WED 08/21/15 06/01/16 [Vitamin D2] Review of Systems - Review of Systems Constitutional: Fatigue. absent: Fevers Eyes: absent: Vision Changes, Eye Pain Respiratory: absent: SOB, Cough Cardiovascular: Edema, Calf Pain. absent: Chest Pain, VAZQUEZ, Orthopnea Gastrointestinal: absent: Abdominal Pain, Nausea, Vomiting Genitourinary Male: absent: Dysuria, Frequency Musculoskeletal: Back Pain, Other (right leg swelling and drainage). absent: Neck Pain Skin: Skin Lesions Neurological: absent: Headache, Dizziness, Focal Weakness Hemo/Lymphatic: absent: Easy Bleeding Physical Exam - Physical Exam Narrative Physical Exam (Text): Head: Atraumatic. Normocephalic. Eyes: PERRL. EOMI. Conjunctivae are not pale. ENT: Mucous membranes are moist and intact. Poor dentitition. No facial edema. Neck: Supple. Full ROM. No JVD. Cardiovascular: Regular rate. Regular rhythm. Distal pulses palpable. Pulmonary/Chest: No evidence of respiratory distress. Clear to auscultation bilaterally. No wheezing, rales or rhonchi. No rib cage crepitus or point tenderness. Abdominal: Distended, obese, nontender. Back: No CVA tenderness. Healing ecchmosis to left upper back/shoulder. Extremities: There is edema to right calf, tender to palpation with erythema, there are skin changes to left lower extremity, no drainage. Skin: Skin is erythematous to RIGHT calf/anterior savage, punctate lesion with no pus or active drainage or fluctuance currently. Neurological: Alert, awake, and oriented. No meningeal signs. Motor and sensory exam intact. Psychiatric: Good eye contact. Normal interaction, affect, and behavior. 06/01/16 16:02 Vital Signs Reviewed: Yes Vital Signs Temp Pulse Resp BP Pulse Ox 06/01/16 18:00 61 16 142/80 100 06/01/16 16:04 65 18 130/80 100 06/01/16 13:07 98 F 62 18 153/87 H 100 Temperature: Afebrile Blood Pressure: Hypertensive Appearance: Positive for: Non-Toxic Pain Distress: Mild Medical Decision Making ED Course and Treatment: Patient on examination has mild erythema and edema noted in the right leg greater than the left. He denies leg pain or acute swelling, but does report that he has had prior history of DVT in the LEFT leg over 20 years ago. He states that he has an IVC filter in place 20 years ago. He states he did get treated with blood thinners in the past but is not currently taking blood thinners. He denies any acute chest pain or shortness of breath. Of noted, patient was recently in ED for a fall earlier in the month. Recent CT head and MRI of brain reviewed, as well as recent chest xray and other imaging. He also has had recent cardiac catheterization which was unremarkable. Doppler ultrasound report reviewed directly with airframe technical officer, who reports that patient has NO DVT in the RIGHT leg but a POSITIVE DVT in the LEFT leg. This result was reviewed with radiologist, as well as with patient. He is not hypoxic, denies acute chest pain or dyspnea, has no pleuritic pain. Risks/benefits of heparin reviewed with patient. He has no history of active bleeding. Heparin bolus and drip ordered after review with pharmacy for DVT protocol. Case discussed with Dr. Kimball, covering for PMD, accepts admission. Patient reports allergy to IV contrast, stating that he has breathing difficulty when it was last administered to him. At this time, no chest pain or sob, although will be admitted to re-evaluate his symptoms and hx of dvt, ivc filter. Treatment plan reviewed with patient, agreeable to plan. - Lab Interpretations Lab Results: 06/01/16 15:00 06/01/16 15:00 Lab Results 06/01/16 15:00: WBC 4.6, RBC 3.69, Hgb 11.9 L, Hct 36.0 L, MCV 97.6, MCH 32.2, MCHC 33.1, RDW 15.2 H, Plt Count 202, MPV 9.0, Gran % 57.1, Lymph % (Auto) 29.0 , [place] % (Auto) 9.5 H, Eos % (Auto) 4.0, Baso % (Auto) 0.4, Gran # 2.60, Lymph # 1.3, [place] # 0.4, Eos # 0.2, Baso # 0.02, Sodium 140, Potassium 4.3, Chloride 102, Carbon Dioxide 27, Anion Gap 15, BUN 16, Creatinine 1.0, Est GFR ( Amer) > 60, Est GFR (Non-Af Amer) > 60, Random Glucose 74, Calcium 8.7, Total Bilirubin 1.3, AST 31, ALT 22, Alkaline Phosphatase 93, Total Protein 7.8, Albumin 4.2, Globulin 3.6, Albumin/Globulin Ratio 1.2 06/01/16 14:55: PT 11.3, INR 1.05, APTT 27.4, D-Dimer, Quantitative 15.25 H - RAD Interpretation Radiology Orders: 06/01/16 14:08 DUPLEX LOWER EXTRM VEIN BILAT [US] Stat 06/01/16 15:54 CHEST PORTABLE [RAD] Stat Balancer: Radiologist - EKG Interpretation EKG Interpretation (Text): 06/01/16 19:20 EKG at 17:23 sinus bradycardia rate of 46 with right bundle branch block Interpreted by ED Physician: Yes Type: 12 lead EKG - Medication Orders Current Medication Orders: Heparin Sodium/Sodium Chloride (Heparin 06663 Units/250ml 1/2 Normal Saline) 250 mls @ 19 mls/hr IV .[id number] PRN; Protocol PRN Reason: ADJUST RATE PER PROTOCOL Last Admin: 06/01/16 18:11 Dose: 19 MLS/HR Titration Intervention Document 06/01/16 18:11 RR (Rec: 06/01/16 18:13 RR [id number]) Titration Intake Container Volume 250 Titration Dosing Titration Dose 25,000 IV Rate 19 Intake/Decrease Start eMAR Start Stop Document 06/01/16 18:11 RR (Rec: 06/01/16 18:13 RR [id number]) Intravenous Solution Start Date 06/01/16 Start Time 18:13 Discontinued Medications Heparin Sodium (Porcine) (Heparin) 8,350 units IVP ONCE ONE Stop: 06/01/16 18:01 Last Admin: 06/01/16 18:05 Dose: 8,350 UNITS IVP Administration Document 06/01/16 18:05 RR (Rec: 06/01/16 18:08 RR [id number]) Charges for Administration # of IVP Administrations 1 Heparin Sodium/Sodium Chloride (Heparin 20283 Units/250ml 1/2 Normal Saline) 250 mls @ 12.24 mls/hr IV .[id number] PRN; Protocol PRN Reason: ADJUST RATE PER PROTOCOL Heparin Sodium/Sodium Chloride (Heparin 51294 Units/250ml 1/2 Normal Saline) 250 mls @ 18.8 mls/hr IV .[id number] PRN; Protocol PRN Reason: ADJUST RATE PER PROTOCOL Disposition/Present on Arrival - Present on Arrival Any Indicators Present on Arrival: Yes History of DVT/PE: Yes History of Uncontrolled Diabetes: No Urinary Catheter: No History of Decub. Ulcer: No History Surgical Site Infection Following: None - Disposition Have Diagnosis and Disposition been Completed?: Yes Diagnosis: DVT (deep venous thrombosis), Leg edema Disposition: HOSPITALIZED Disposition Time: 16:25 Patient Plan: Admission, Telemetry Patient Problems: Current Active Problems Problem Status Diagnosed Multiple contusions Acute Condition: FAIR
[2016-06-01 15:13] LABS: ADD MANUAL DIFF? NO
[2016-06-01 15:19] LABS: BASO # 0.02 K/mm3 (0.0-2.0); BASO % 0.4 % (0.0-3.0); EOS # 0.2 (0.0-0.7); GRAN % 57.1 % (50.0-68.0); LYMPH # 1.3 (1.2-3.4); MEAN CELL VOLUME 97.6 fL (80.0-105.0); MEAN CORPUSCULAR HEMOGLOBIN 32.2 pg (25.0-35.0); MEAN CORPUSCULAR HGB CONC 33.1 g/dl (31.0-37.0); MONO # 0.4 (0.1-0.6); MONO % 9.5 % (1.0-6.0); PLATELET COUNT 202 10^3/uL (120.0-450.0); RED CELL DISTRIBUTION WIDTH 15.2 % (11.5-14.5); WHITE BLOOD COUNT 4.6 10^3/ul (4.5-11.0)
[2016-06-01 15:26] LABS: ALB/GLOB RATIO 1.2 (1.1-1.8); ALKALINE PHOSPHATASE 93 U/L (38-133); ALT/SGPT 22 U/L (7-56); AST/SGOT 31 U/L (15-59); BILIRUBIN,TOTAL 1.3 mg/dL (0.2-1.3); BLOOD UREA NITROGEN 16 mg/dL (7-21); CALCIUM 8.7 mg/dL (8.4-10.5); CARBON DIOXIDE 27 mmol/L (21-33); CHLORIDE 102 mmol/L (98-107); GFR AFRICAN-AMERICAN > 60; GLUCOSE,RANDOM 74 mg/dL (70-110); POTASSIUM 4.3 mmol/L (3.6-5.0); SODIUM 140 mmol/L (132-148); TOTAL PROTEIN 7.8 g/dL (5.8-8.3)
[2016-06-01 16:14] LABS: INR 1.05 (0.93-1.08); PARTIAL THROMBOPLASTIN TIME 27.4 Seconds (23.7-30.8)
[2016-06-01] MEDS ORDERED: Heparin25000 units/250ml 1/2NS 250 ML IV PRN ×2 (17:30→17:52)
[2016-06-01] MEDS: Heparin25000 units/250ml 1/2NS 250 ML IV PRN (18:11)
[2016-06-01 23:11] VITALS: BMI 43.2
[2016-06-01] MEDS ORDERED: Pneumococcal 23-Valent Vaccine IM ONE (23:11)
[2016-06-02] MEDS: QUEtiapine 50 MG, QUEtiapine 100 MG PO SCH ×2 (01:44→21:47)
[2016-06-02] MEDS: Heparin25000 units/250ml 1/2NS 250 ML IV PRN ×3 (03:19→23:46)
--- NOTE | 2016-06-02 05:29 | CP.PCM.PN ---
Subjective - Date & Time of Evaluation Date of Evaluation: 06/02/16 Time of Evaluation: 05:25 - Subjective Subjective: Patient was seen at bedside . States that he is taking neurontin 900 mg 3 times a day. He has pain in both legs and neurontin helps him for his pain. States that he did not get his xanax 2 mg , seroquel 150 mg and Lexapro 10 mg which he takes every night. Has no other complaints . This 56 year old white male was admitted with complaint of swelling in right leg of several days duration. Has PMH of COPD, DVT,Obesity, depression, Lymes', gastric sleeve. Objective - Vital Signs/Intake and Output Vital Signs (last 24 hours): Temp Pulse Resp BP Pulse Ox 98 F 61 16 142/80 100 06/01/16 22:45 06/01/16 22:45 06/01/16 22:45 06/01/16 22:45 06/01/16 18:00 Intake and Output: 06/01/16 06/02/16 18:59 06:59 Output Total 300 Balance -300 - Medications Medications: Current Medications Allopurinol (Zyloprim) 100 mg PO DAILY SHAUN Alprazolam (Xanax) 2 mg PO TID SHAUN Alprazolam (Xanax) 2 mg PO HS SHAUN Escitalopram Oxalate (Lexapro) 10 mg PO HS SHAUN Folic Acid (Folic Acid) 1 mg PO DAILY SHAUN Gabapentin (Neurontin) 900 mg PO TID SHAUN PRN Reason: Protocol Heparin Sodium/Sodium Chloride (Heparin 16491 Units/250ml 1/2 Normal Saline) 250 mls @ 19 mls/hr IV .[id number] PRN; Protocol PRN Reason: ADJUST RATE PER PROTOCOL Last Admin: 06/02/16 03:19 Dose: 16.1 mls/hr Loratadine (Claritin) 10 mg PO DAILY SHAUN Oxycodone HCl (Oxycodone Immediate Release Tab) 10 mg PO Q6 PRN PRN Reason: Pain, moderate (4-7) Pantoprazole Sodium (Protonix Ec Tab) 40 mg PO ACB SHAUN Quetiapine Fumarate 50 mg/ (Quetiapine Fumarate 100 mg) 150 mg PO HS SHAUN Last Admin: 06/02/16 01:44 Dose: 150 mg - Labs Labs: PT 11.3 Seconds (9.9-11.8) 06/01/16 14:55 INR 1.05 (0.93-1.08) 06/01/16 14:55 APTT 88.6 Seconds (23.7-30.8) H* 06/02/16 01:12 - Constitutional Appears: Well, No Acute Distress - Head Exam Head Exam: ATRAUMATIC, NORMAL INSPECTION, NORMOCEPHALIC (O) Additional comments: Obese. - Eye Exam Eye Exam: Normal appearance - ENT Exam ENT Exam: Normal External Ear Exam - Neck Exam Neck Exam: Normal Inspection - Respiratory Exam Respiratory Exam: NORMAL BREATHING PATTERN - Cardiovascular Exam Cardiovascular Exam: absent: JVD - GI/Abdominal Exam GI & Abdominal Exam: absent: Distended - Rectal Exam Rectal Exam: Deferred - Extremities Exam Additional comments: Right leg swelling + - Back Exam Back Exam: NORMAL INSPECTION - Neurological Exam Neurological Exam: Alert, Oriented x3 - Psychiatric Exam Psychiatric exam: Normal Affect, Normal Mood - Skin Skin Exam: Normal Color Assessment and Plan - Assessment and Plan (Free Text) Assessment: A/P:Right leg DVT. Obesity. COPD. Depression. Order Neurontin 900 mg PO STAT, Xanax 2 mg PO STAT, Seroquel 150 mg PO stat, Lexapro 10 mg PO stat and HS. Continue present management.
[2016-06-02 06:52] LABS: ADD MANUAL DIFF? NO
[2016-06-02 07:00] LABS: BASO # 0.03 K/mm3 (0.0-2.0); BASO % 0.7 % (0.0-3.0); EOS # 0.2 (0.0-0.7); EOS % 3.6 % (1.5-5.0); GRAN % 47.5 % (50.0-68.0); HEMATOCRIT 31.6 % (42.0-52.0); LYMPH # 1.6 (1.2-3.4); LYMPH % 37.3 % (22.0-35.0); MEAN CELL VOLUME 96.3 fL (80.0-105.0); MEAN CORPUSCULAR HEMOGLOBIN 31.4 pg (25.0-35.0); MEAN CORPUSCULAR HGB CONC 32.6 g/dl (31.0-37.0); MEAN PLATELET VOLUME 9.1 fl (7.0-11.0); MONO # 0.5 (0.1-0.6); MONO % 10.9 % (1.0-6.0); PLATELET COUNT 187 10^3/uL (120.0-450.0); WHITE BLOOD COUNT 4.2 10^3/ul (4.5-11.0)
[2016-06-02 07:05] LABS: BLOOD UREA NITROGEN 14 mg/dL (7-21); CALCIUM 8.6 mg/dL (8.4-10.5); CARBON DIOXIDE 28 mmol/L (21-33); CHLORIDE 105 mmol/L (95-110); GFR AFRICAN-AMERICAN > 60; GLUCOSE,RANDOM 93 mg/dL (70-110); POTASSIUM 4.2 mmol/L (3.6-5.0); SODIUM 140 mmol/L (132-148)
[2016-06-02 07:12] LABS: IRON 65 ug/dL (45-180)
--- NOTE | 2016-06-02 07:47 | RAD ---
HISTORY: weakness COMPARISON: No prior. FINDINGS: LUNGS: No active pulmonary disease. PLEURA: No significant pleural effusion identified, no pneumothorax apparent. CARDIOVASCULAR: Normal. OSSEOUS STRUCTURES: No significant abnormalities. VISUALIZED UPPER ABDOMEN: Normal. OTHER FINDINGS: None. IMPRESSION: No active disease.
[2016-06-02] MEDS: Pantoprazole 40 mg EC Tab PO SCH (08:20)
[2016-06-02] MEDS ORDERED: Non Formulary Medication (Cetirizine Hcl [Zyrtec] 10 MG) PO SCH (10:00)
--- NOTE | 2016-06-02 11:36 | US ---
HISTORY: Leg pain and swelling. Evaluate for DVT PHYSICIAN(S): Gerald Lara MD. TECHNIQUE: Duplex sonography and color-flow Doppler with graded compression were used to evaluate the deep venous systems of both lower extremities. FINDINGS: The exam is very limited by body habitus and edema. The right common femoral vein and right femoral vein are patent and compressible. The right popliteal vein and right tibial veins are poorly seen. The left common femoral vein is patent and compressible. Partially recannulized thrombus is noted in the mid and distal left femoral vein. Age indeterminate. The left popliteal vein and tibial veins are not well seen. IMPRESSION: Very limited study due to body habitus and edema Partially recannulized thrombus in the left femoral and popliteal veins, age indeterminate.
--- NOTE | 2016-06-02 13:30 | CARD ---
APPROVED REPORT EKG Measurement Heart [id number] <Conclusion> Marked sinus bradycardia Right bundle branch block Abnormal ECG
[2016-06-02] MEDS ORDERED: Vancomycin 1gm in NS 250ml 250 ML IVPB SCH (13:45)
[2016-06-02 17:50] LABS: FOLATE > 20.0 ng/mL
--- NOTE | 2016-06-02 20:51 | HP ---
HISTORY OF PRESENT ILLNESS: The patient is a 56-year-old male admitted to the hospital when he prese nted to the ED with right leg swelling and pain. He was unable to walk due to redness and pain, and there was discharged on the right lower extremity. Doppler done on both lower extremities in the ED showed DVT in the left femoral and popliteal vein, nonocclusive. He has prior history of DVT in the 90s. When he developed DVT in the right lower extremity, he had IVC filter placed. He was on Coumad in for 20 years. He is off Coumadin now. He also has left shoulder pain. He fell a few weeks ago a nd was admitted to the hospital. Denies any fever or chills. He has pain on the left side of the ch est with deep inspiration. No cough, no expectorant. He has morbid obesity, underwent gastric sleev e surgery 7 years ago. He was feeling weak and tired for the past few months, no energy. PAST MEDICAL HISTORY: COPD, fibromyalgia, chronic fatigue, morbid obesity, history of Lyme disease, unsteady gait, history of DVT. PAST SURGICAL HISTORY: Gastric sleeve for morbid obesity. FAMILY HISTORY: No positive history in mother or father. PERSONAL HISTORY: Never smoked. Occasional beer use. SOCIAL HISTORY: Lives at home with . ALLERGIES: CEFTIN CAUSES ANAPHYLAXIS, IODINE CAUSES A RASH. HOME MEDICATIONS: Allopurinol 100 mg daily, omeprazole 20 mg daily, cetirizine 10 mg daily, folic ac id 1 mg daily, Xanax 2 mg p.o. t.i.d., vitamin D 50,000 units daily. REVIEW OF SYSTEMS: As per HPI. Rest of 12-point review of systems reviewed and negative. PHYSICAL EXAMINATION: GENERAL: Comfortable in bed, in no acute distress. Morbidly obese. VITAL SIGNS: Stable. Temperature 98.5, heart rate is 62 per minute, respiratory 18 per minute, bloo d pressure 150/80, heart rate is 100 per minute. HEENT: Normal. Oral mucosa moist. NECK: No lymphadenopathy. CHEST: Air entry present, equal bilateral. No added sound. CARDIOVASCULAR: Within normal limits. ABDOMEN: Soft, nontender, obese. No rebound tenderness. EXTREMITIES: Bilateral lower extremity edema present, bilateral calf tenderness present. Skin warm a nd dry, no oozing from right leg. Right leg swollen until thigh. CENTRAL NERVOUS SYSTEM: Alert, oriented x 3. No focal sensorimotor deficit. SPINE: Normal. LYMPHADENOPATHY: None. LABORATORY DATA: White count 4.2, hemoglobin 10.3, hematocrit 31.6, platelet count 187. PTT 53. IN R 1. Sodium 140, potassium 4.2, BUN 14, creatinine 0.9. Iron 65, B12 of 217, folate 20, iron saturation 22. ASSESSMENT AND PLAN: 1. Deep venous thrombosis of left lower extremity, possible deep venous thrombosis in the right lowe r extremity. 2. Hypercoagulable state. 3. B12 deficiency. 4. Inferior vena cava filter. 5. Chronic obstructive pulmonary disease. 6. Chronic fatigue. 7. Frequent falls. 8. Bilateral lower extremity cellulitis. PLAN: 1. He is currently on heparin drip. We will maintain the therapeutic PTT. Discussed the anticoagul ation with him. He will need thrombophilia workup. He had DVT 20 years ago. Depending on thrombophi valente workup results, length of anticoagulation will be determined. We will start Coumadin tonight 10 m g daily until INR is therapeutic. He is unable to walk because of bilateral lower extremity cellulit is. I advised him to rest today and will have bedside PT evaluate tomorrow. He has IVC filter. Will do Doppler of inferior vena cava to assess the status of filter and if there is thrombus around the filter. 2. History of gastric bypass surgery; it can lead to iron absorption defect and B12 absorption defec t. Iron studies ordered. Blood iron is 65, saturation 22%. B12 is low at 2.7. Since he has history of frequent falls and syncope, I will start parenteral B12 injections 1 mg subQ daily and then 1 mg weekly and then monthly. He might need lifelong B12 injections because of gastric bypass surgery. I discussed all of the above with the patient. We will start IV antibiotic, vancomycin, for lower ex tremity DVT. ID consultation, Dr. Contreras, requested. We will continue Neurontin 900 mg t.i.d. He is on Xanax 2 mg t.i.d. We will continue that. Continue Percocet 10 mg q. 6 hours p.r.n. for lowe r extremity pain. Protonix 40 mg . Nelia Kimball MD cc: [id number] TT: 06/02/2016 20:50:05 ln
[2016-06-02] MEDS: Vancomycin 1gm in NS 250ml 250 ML IVPB SCH (21:48)
--- NOTE | 2016-06-03 07:04 | PN ---
DATE: 06/03/2016 SUBJECTIVE: The patient has no complaints of any chest pain, no shortness of breath, no headaches. PHYSICAL EXAMINATION: VITAL SIGNS: Temperature is 98.1, pulse of 47, blood pressure 130/75, respirations 20. GENERAL: The patient comfortable, in no acute distress. HEENT: Anicteric sclerae. Moist mucosa. NECK: No JVD or adenopathy. CARDIAC: S1/S2. No murmurs. No rubs. Regular. RESPIRATORY: Clear to auscultation bilaterally. No wheezes, rales, or rhonchi. Good air entry. ABDOMEN: Bowel sounds are positive, soft, nontender, and nondistended. EXTREMITIES: No edema. Has 1+ pulses. LABS: White count of 4.2, hemoglobin 10.3. Creatinine 0.9. ASSESSMENT: 1. Deep venous thrombosis in the left femoral and popliteal vein. 2. Hypercoagulable state. 3. B12 deficiency. 4. Chronic obstructive pulmonary disease. 5. Chronic fatigue. 6. Fall. 7. Fibromyalgia. PLAN: The patient is on Claritin. He is going to continue on Coumadin; he is not therapeutic. I wi ll get Dr. Kimball to follow the patient. The patient on heparin. He is on vancomycin for antibiotics . He is going to continue with Xanax. He is on allopurinol for hyperuricemia. He is on oxycodone f or pain. Constantin Cervantes MD cc: [id number] TT: 06/03/2016 07:03:16 Confirmation # [id number] Dictation # [id number]
[2016-06-03] MEDS: Pantoprazole 40 mg EC Tab PO SCH (10:34)
[2016-06-03] MEDS: Vancomycin 1gm in NS 250ml 250 ML IVPB SCH ×2 (10:34→21:42)
--- NOTE | 2016-06-03 13:52 | CP.PCM.PN ---
Subjective - Date & Time of Evaluation Date of Evaluation: 06/03/16 Time of Evaluation: 11:40 - Subjective Subjective: Patient has very poor veins,needs iv access. Objective - Vital Signs/Intake and Output Vital Signs (last 24 hours): Temp Pulse Resp BP Pulse Ox 97.5 F L 55 L 19 166/91 H 97 06/03/16 06:00 06/03/16 10:00 06/03/16 06:00 06/03/16 06:00 06/03/16 06:00 Intake and Output: 06/03/16 06/03/16 06:59 18:59 Intake Total 384 Output Total 1300 Balance -916 - Medications Medications: Current Medications Allopurinol (Zyloprim) 100 mg PO DAILY [facility] Last Admin: 06/03/16 10:42 Dose: 100 mg Alprazolam (Xanax) 2 mg PO TID [facility] Last Admin: 06/03/16 13:31 Dose: 2 mg Alprazolam (Xanax) 2 mg PO HS [facility] Last Admin: 06/02/16 21:49 Dose: 2 mg Cyanocobalamin (Vitamin B12 1000 Mcg/Ml Inj) 1,000 mcg IM DAILY [facility] Last Admin: 06/03/16 10:34 Dose: 1,000 mcg Escitalopram Oxalate (Lexapro) 10 mg PO HS [facility] Last Admin: 06/02/16 21:47 Dose: 10 mg Folic Acid (Folic Acid) 1 mg PO DAILY [facility] Last Admin: 06/03/16 10:32 Dose: 1 mg Gabapentin (Neurontin) 900 mg PO TID [facility] PRN Reason: Protocol Last Admin: 06/03/16 13:30 Dose: 900 mg Heparin Sodium/Sodium Chloride (Heparin 60223 Units/250ml 1/2 Normal Saline) 250 mls @ 19 mls/hr IV .[id number] PRN; Protocol PRN Reason: ADJUST RATE PER PROTOCOL Last Admin: 06/02/16 23:46 Dose: 16.1 mls/hr Vancomycin HCl (Vancomycin 1gm) 250 mls @ 167 mls/hr IVPB Q12 SHAUN PRN Reason: Protocol Last Admin: 06/03/16 10:34 Dose: 167 mls/hr Loratadine (Claritin) 10 mg PO DAILY [facility] Last Admin: 06/03/16 10:32 Dose: 10 mg Oxycodone HCl (Oxycodone Immediate Release Tab) 10 mg PO Q6 PRN PRN Reason: Pain, moderate (4-7) Pantoprazole Sodium (Protonix Ec Tab) 40 mg PO ACB SHAUN Last Admin: 06/03/16 10:34 Dose: 40 mg Quetiapine Fumarate 50 mg/ (Quetiapine Fumarate 100 mg) 150 mg PO HS SHAUN Last Admin: 06/02/16 21:47 Dose: 150 mg Warfarin Sodium (Coumadin) 10 mg PO 1800 SHAUN PRN Reason: Protocol Last Admin: 06/02/16 21:46 Dose: 10 mg - Labs Labs: 06/02/16 06:48 06/02/16 06:48 PT 11.3 Seconds (9.9-11.8) 06/01/16 14:55 INR 1.05 (0.93-1.08) 06/01/16 14:55 APTT 56.3 Seconds (23.7-30.8) H 06/03/16 07:30 - Constitutional Appears: No Acute Distress Assessment and Plan - Assessment and Plan (Free Text) Assessment: Poor venous access. Plan: Hep lock inserted in the R hand. #24 angiocath used.
[2016-06-03] MEDS: Heparin25000 units/250ml 1/2NS 250 ML IV PRN (16:45)
--- NOTE | 2016-06-03 18:31 | US ---
PROCEDURE: 1. Duplex ultrasound of the abdominal aorta. HISTORY: Abdominal aortic aneurysm. PHYSICIAN(S): Gerald Lara MD. FINDINGS: The exam is very limited by body habitus and bowel gas. Limited images of the abdominal aorta are normal in caliber. No sonographic evidence of abdominal aortic aneurysm is seen. The IVC filter is not clearly identified. Images of the lower inferior vena cava appear patent obvious thrombus or collateralization. IMPRESSION: 1. Limited study. 2. IVC filter is not clearly identified. 3. Limited images of the lower inferior vena cava appear patent without obvious thrombus or collaterals.
[2016-06-03] MEDS: QUEtiapine 50 MG, QUEtiapine 100 MG PO SCH (21:41)
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
[2016-06-04] MEDS: Vancomycin 1gm in NS 250ml 250 ML IVPB SCH ×2 (09:33→21:57)
[2016-06-04] MEDS: Pantoprazole 40 mg EC Tab PO SCH (09:36)
[2016-06-04] MEDS: Heparin25000 units/250ml 1/2NS 250 ML IV PRN (09:49)
[2016-06-04] MEDS: oxyCODONE 10 mg Immediate Release Tab PO PRN (13:07)
--- NOTE | 2016-06-04 20:05 | CP.PCM.PN ---
Subjective - Date & Time of Evaluation Date of Evaluation: 06/04/16 Time of Evaluation: 12:05 - Subjective Subjective: Comfortable in bed, not in distress, afebrile, less pain in the right leg. Objective - Vital Signs/Intake and Output Vital Signs (last 24 hours): Temp Pulse Resp BP Pulse Ox 98.2 F 57 L 20 151/88 H 100 06/04/16 06:00 06/04/16 18:00 06/04/16 06:00 06/04/16 06:00 06/04/16 06:00 - Medications Medications: Current Medications Allopurinol (Zyloprim) 100 mg PO DAILY [facility] Last Admin: 06/04/16 09:36 Dose: 100 mg Alprazolam (Xanax) 2 mg PO TID [facility] Last Admin: 06/04/16 18:03 Dose: 2 mg Alprazolam (Xanax) 2 mg PO HS [facility] Last Admin: 06/03/16 21:43 Dose: 2 mg Cyanocobalamin (Vitamin B12 1000 Mcg/Ml Inj) 1,000 mcg IM DAILY [facility] Last Admin: 06/04/16 09:37 Dose: 1,000 mcg Escitalopram Oxalate (Lexapro) 10 mg PO HS [facility] Last Admin: 06/03/16 21:40 Dose: 10 mg Folic Acid (Folic Acid) 1 mg PO DAILY [facility] Last Admin: 06/04/16 09:36 Dose: 1 mg Gabapentin (Neurontin) 900 mg PO TID [facility] PRN Reason: Protocol Last Admin: 06/04/16 18:00 Dose: 900 mg Heparin Sodium/Sodium Chloride (Heparin 59450 Units/250ml 1/2 Normal Saline) 250 mls @ 19 mls/hr IV .[id number] PRN; Protocol PRN Reason: ADJUST RATE PER PROTOCOL Last Admin: 06/04/16 09:49 Dose: 16.1 mls/hr Vancomycin HCl (Vancomycin 1gm) 250 mls @ 167 mls/hr IVPB Q12 SHAUN PRN Reason: Protocol Last Admin: 06/04/16 09:33 Dose: 167 mls/hr Loratadine (Claritin) 10 mg PO DAILY [facility] Last Admin: 06/04/16 09:36 Dose: 10 mg Oxycodone HCl (Oxycodone Immediate Release Tab) 10 mg PO Q6 PRN PRN Reason: Pain, moderate (4-7) Last Admin: 06/04/16 13:07 Dose: 10 mg Pantoprazole Sodium (Protonix Ec Tab) 40 mg PO ACB SHAUN Last Admin: 06/04/16 09:36 Dose: 40 mg Quetiapine Fumarate 50 mg/ (Quetiapine Fumarate 100 mg) 150 mg PO HS SHAUN Last Admin: 06/03/16 21:41 Dose: 150 mg Warfarin Sodium (Coumadin) 10 mg PO 1800 SHAUN PRN Reason: Protocol Last Admin: 06/04/16 18:04 Dose: 10 mg - Labs Labs: 06/02/16 06:48 06/02/16 06:48 PT 11.3 Seconds (9.9-11.8) 06/01/16 14:55 INR 1.05 (0.93-1.08) 06/01/16 14:55 APTT 60.8 Seconds (23.7-30.8) H 06/04/16 06:00 - Constitutional Appears: Non-toxic, No Acute Distress - Head Exam Head Exam: NORMAL INSPECTION - Respiratory Exam Respiratory Exam: Decreased Breath Sounds - Cardiovascular Exam Cardiovascular Exam: +S1, +S2 - GI/Abdominal Exam GI & Abdominal Exam: Soft. absent: Tenderness - Extremities Exam Additional comments: slightly less swelling of the right leg Assessment and Plan - Assessment and Plan (Free Text) Plan: Assessment Right leg skin and skin structure infection, slowly improving left leg DVT dyslipidemia COPD history of Lyme infection arthritis history of gout fibromyalgia spinal stenosis peripheral neuropathy COPD GERD S/P gastric sleeve surgery morbid obesity with BMI 43 Plan continue Vancomycin day 2; blood cx are negative Will continue to monitor clinical response
[2016-06-04] MEDS: QUEtiapine 50 MG, QUEtiapine 100 MG PO SCH (21:57)
--- NOTE | 2016-06-04 23:27 | PN ---
DATE: 06/04/2016 DATE: 06/04/2016 SUBJECTIVE: The patient has no complaints of any chest pain or shortness of breath, no headaches or dizziness. PHYSICAL EXAMINATION: VITAL SIGNS: Temperature is 98, pulse of 57, blood pressure 145/82, respirations 18. GENERAL: The patient comfortable, in no acute distress. HEENT: Anicteric sclerae. Moist mucosa. NECK: No JVD or adenopathy. CARDIAC: S1/S2. No murmurs. No rubs. Regular. RESPIRATORY: Clear to auscultation bilaterally. No wheezes, rales, or rhonchi. Good air entry. ABDOMEN: Bowel sounds are positive, soft, nontender, and nondistended. EXTREMITIES: No edema. Has 1+ pulses. LABORATORY DATA: White count of 4.2, hemoglobin 10.3. Creatinine 0.9. ASSESSMENT: 1. Deep vein thrombosis of the left femoral and popliteal vein. 2. Hypercoagulable state. 3. B12 deficiency. 4. Chronic obstructive pulmonary disease. 5. Fibromyalgia. 6. Fall. 7. Chronic fatigue. 8. Spinal stenosis. 9. Status post gastric sleeve surgery. PLAN: The patient is currently comfortable. This patient is on Coumadin. The patient is going to g et a PT/INR done tomorrow. He is on Lexapro for his anxiety. He is on oxycodone for pain. He is go ing to continue with Seroquel. He is on antibiotics for lower extremity cellulitis. Constantin Cervantes MD cc: [id number] TT: 06/04/2016 23:26:54 Confirmation # [id number] Dictation # [id number] [place] 06/05/2016 08:47:10
[2016-06-05] MEDS: Heparin25000 units/250ml 1/2NS 250 ML IV PRN ×2 (03:09→20:08)
[2016-06-05 08:04] LABS: INR 1.66 (0.93-1.08)
[2016-06-05 08:14] LABS: PARTIAL THROMBOPLASTIN TIME 78.3 Seconds (23.7-30.8)
[2016-06-05] MEDS: oxyCODONE 10 mg Immediate Release Tab PO PRN ×2 (09:37→20:08)
[2016-06-05] MEDS: Pantoprazole 40 mg EC Tab PO SCH (09:37)
--- NOTE | 2016-06-05 09:40 | PN ---
DATE: 06/05/2016 SUBJECTIVE: The patient has no complaints of any chest pain or shortness of breath, no headaches or dizziness. PHYSICAL EXAMINATION: VITAL SIGNS: Temperature is 98, pulse of 51, blood pressure is 145/82, respiration is 18. GENERAL: The patient comfortable, in no acute distress. HEENT: Anicteric sclerae. Moist mucosa. NECK: No JVD or adenopathy. CARDIAC: S1/S2. No murmurs. No rubs. Regular. RESPIRATORY: Clear to auscultation bilaterally. No wheezes, rales, or rhonchi. Good air entry. ABDOMEN: Bowel sounds are positive, soft, nontender, and nondistended. EXTREMITIES: No edema. Has 1+ pulses. LABORATORY DATA: White count of 4.3, hemoglobin 10.3. Creatinine 0.9. Aortic ultrasound done shows it is a limited study. An IVC filter is not clearly identified, limited images of the lower inferior vena cava, patent without obvious thrombus or collaterals. ASSESSMENT: 1. Deep venous thrombosis, left femoral and popliteal veins. 2. Hypercoagulable state. 3. Chronic obstructive pulmonary disease. 4. B12 deficiency. 5. Fibromyalgia. 6. Fall. 7. Spinal stenosis. 8. Status post gastric sleeve. PLAN: The patient is currently on folic acid. He is going to continue with heparin. He has been st arted on Coumadin. The patient is on Neurontin for neuropathy, is on Seroquel. This will be continu ed. The patient is on Xanax. The patient's INR is pending from this morning. Constantin Cervantes MD cc: [id number] TT: 06/05/2016 09:39:43 Confirmation # [id number] Dictation # [id number] tn
[2016-06-05] MEDS: Vancomycin 1gm in NS 250ml 250 ML IVPB SCH ×2 (09:43→21:10)
--- NOTE | 2016-06-05 16:45 | PN ---
DATE: 06/05/2016 SUBJECTIVE: The patient was admitted with bilateral lower extremity swelling. He was found to have DVT in the left lower extremity in popliteal and femoral vein. Pain and swelling on the right lower extremity has decreased markedly. He is being treated with empiric IV antibiotic for lower extremity cellulitis with vancomycin. He has hypercoagulable state. He had DVT many years ago in 90s and had IVC filter placed. Evaluation of IVC filter by a venous Doppler of IVC did not show any obvious thr ombosis but because of obesity the inferior vena cava could not be visualized properly. He also has a history of gastric sleeve surgery 7 years ago. B12 level is low. He is deficient in B12. He had a history of syncope and fell before recently. Currently, getting B12 IM every day. REVIEW OF SYSTEMS: As per HPI. Rest of 12-point review of systems reviewed and negative. PHYSICAL EXAMINATION: GENERAL: Comfortable in bed, in no acute distress, obese. VITAL SIGNS: Temperature 98.6, heart rate 51 minute, blood pressure 130/80, respiratory rate 15 per minute. HEENT: Normal. CHEST: Air entry present, equal bilateral. No added sound. CARDIOVASCULAR: S1, S2 normal. No murmur, no gallop. ABDOMEN: Soft, nontender, no hepatosplenomegaly. EXTREMITIES: Bilateral leg cellulitis. 1+ pulses. Leg edema on the right side, decreased. CENTRAL NERVOUS SYSTEM: Alert, oriented x 3, no focal sensorimotor deficit. SKIN: No petechia, no rash. LABORATORY DATA: B12 217. White count 4.2, hemoglobin 10.3, hematocrit 31.6, platelet count 187. S odium 140, potassium 4.2, calcium 8.6. Iron 65, percentage saturation 22, ferritin 97. Vitamin B12 217. Coags: PTT 78. INR 1.6, PT 17.9. MEDICATIONS: Allopurinol 100 mg daily, Xanax 2 mg t.i.d., vitamin B12 1 mg IM daily, Lexapro 10 mg d aily, folic acid 1 mg daily, Lasix 40 mg IV daily, Neurontin 900 mg p.o. t.i.d., heparin drip, Coumad in 10 mg daily, vancomycin and Protonix 40 mg daily. ASSESSMENT AND PLAN: 1. Hypercoagulable state. 2. Deep venous thrombosis, left femoral, left popliteal. 3. Cellulitis, bilateral lower extremities. 4. Chronic obstructive pulmonary disease. 5. Status post gastric sleeve. 6. B12 deficiency, likely due to B12 absorption defect. 7. recurrent falls. PLAN: He is currently on heparin drip. PTT is therapeutic at 78. He is also on Coumadin 10 mg asa y. We will continue same 10 mg daily, Coumadin. INR is 1.6 today. We will check again tomorrow INR . If it is more than 2 then he can be discharged home on 5 mg daily Coumadin. A hypercoagulable wor kup would be done as outpatient in the office. He has B12 deficiency, currently getting 1 mg IM B12 daily. We will resume 1 mg weekly once he is discharged from the hospital in office. Bilateral lowe r extremity edema, decreased, cellulitis, improved with IV antibiotics. Thank you, Dr. Cervantes, for allowing us to participate in the patient's care. Discussed with the ishan chakraborty. Discussed with the staff nurse. Nelia Kimball MD cc: [id number] TT: 06/05/2016 16:45:03 Confirmation # [id number] Dictation # [id number] hollie
--- NOTE | 2016-06-05 20:20 | CP.PCM.PN ---
Subjective - Date & Time of Evaluation Date of Evaluation: 06/05/16 Time of Evaluation: 13:05 - Subjective Subjective: Comfortable in bed, less pain and swelling on the right leg. Afebrile overnight. Objective - Vital Signs/Intake and Output Vital Signs (last 24 hours): Temp Pulse Resp BP Pulse Ox 98.2 F 61 18 124/64 95 06/05/16 17:00 06/05/16 18:00 06/05/16 17:00 06/05/16 17:44 06/05/16 17:00 Intake and Output: 06/05/16 06/06/16 18:59 06:59 Intake Total 1330 Balance 1330 - Medications Medications: Current Medications Allopurinol (Zyloprim) 100 mg PO DAILY [facility] Last Admin: 06/05/16 09:37 Dose: 100 mg Alprazolam (Xanax) 2 mg PO TID [facility] Last Admin: 06/05/16 17:41 Dose: 2 mg Alprazolam (Xanax) 2 mg PO [facility] Last Admin: 06/04/16 21:58 Dose: 2 mg Cyanocobalamin (Vitamin B12 1000 Mcg/Ml Inj) 1,000 mcg IM DAILY [facility] Last Admin: 06/05/16 09:38 Dose: 1,000 mcg Escitalopram Oxalate (Lexapro) 10 mg PO HS [facility] Last Admin: 06/04/16 21:57 Dose: 10 mg Folic Acid (Folic Acid) 1 mg PO DAILY [facility] Last Admin: 06/05/16 09:37 Dose: 1 mg Furosemide (Lasix) 40 mg IVP BID [facility] Last Admin: 06/05/16 17:44 Dose: 40 mg Gabapentin (Neurontin) 900 mg PO TID [facility] PRN Reason: Protocol Last Admin: 06/05/16 17:44 Dose: 900 mg Heparin Sodium/Sodium Chloride (Heparin 30492 Units/250ml 1/2 Normal Saline) 250 mls @ 19 mls/hr IV .[id number] PRN; Protocol PRN Reason: ADJUST RATE PER PROTOCOL Last Admin: 06/05/16 20:08 Dose: 16.1 mls/hr Vancomycin HCl (Vancomycin 1gm) 250 mls @ 167 mls/hr IVPB Q12 SHAUN PRN Reason: Protocol Last Admin: 06/05/16 09:43 Dose: 167 mls/hr Loratadine (Claritin) 10 mg PO DAILY [facility] Last Admin: 06/05/16 09:37 Dose: 10 mg Oxycodone HCl (Oxycodone Immediate Release Tab) 10 mg PO Q6 PRN PRN Reason: Pain, moderate (4-7) Last Admin: 06/05/16 20:08 Dose: 10 mg Pantoprazole Sodium (Protonix Ec Tab) 40 mg PO ACB SHAUN Last Admin: 06/05/16 09:37 Dose: 40 mg Quetiapine Fumarate 50 mg/ (Quetiapine Fumarate 100 mg) 150 mg PO HS [facility] Last Admin: 06/04/16 21:57 Dose: 150 mg Warfarin Sodium (Coumadin) 10 mg PO 1800 SHAUN PRN Reason: Protocol Last Admin: 06/05/16 17:40 Dose: 10 mg - Labs Labs: 06/02/16 06:48 06/02/16 06:48 PT 17.9 Seconds (9.9-11.8) H 06/05/16 07:30 INR 1.66 (0.93-1.08) H 06/05/16 07:30 APTT 78.3 Seconds (23.7-30.8) H* 06/05/16 07:30 - Constitutional Appears: Non-toxic, No Acute Distress - ENT Exam ENT Exam: Mucous Membranes Moist - Neck Exam Neck Exam: absent: Lymphadenopathy, Meningismus - Respiratory Exam Respiratory Exam: Decreased Breath Sounds - Cardiovascular Exam Cardiovascular Exam: +S1, +S2 - GI/Abdominal Exam GI & Abdominal Exam: Soft. absent: Tenderness - Extremities Exam Additional comments: right leg with decreased swelling and erythema, much improved tenderness Assessment and Plan - Assessment and Plan (Free Text) Plan: Assessment Right leg skin and skin structure infection, clinically improving left leg DVT dyslipidemia COPD history of Lyme infection arthritis history of gout fibromyalgia spinal stenosis peripheral neuropathy COPD GERD S/P gastric sleeve surgery morbid obesity with BMI 43 Plan continue Vancomycin day 3; blood cx are negative; should target 5-7 day course especially with the clinical improvement Will continue to monitor clinical response
[2016-06-05] MEDS: QUEtiapine 50 MG, QUEtiapine 100 MG PO SCH (21:09)
--- NOTE | 2016-06-06 07:38 | PN ---
DATE: 06/06/2016 SUBJECTIVE: The patient has no complaints of any chest pain, no shortness of breath, no headaches, n o dizziness. PHYSICAL EXAMINATION: VITAL SIGNS: Temperature is 98.2, pulse is 72, blood pressure is 124/64, respirations 18. GENERAL: The patient comfortable, in no acute distress. HEENT: Anicteric sclerae. Moist mucosa. NECK: No JVD or adenopathy. CARDIAC: S1/S2. No murmurs. No rubs. Regular. RESPIRATORY: Clear to auscultation bilaterally. No wheezes, rales, or rhonchi. Good air entry. ABDOMEN: Bowel sounds are positive, soft, nontender, and nondistended. EXTREMITIES: No edema. Has 1+ pulses. ASSESSMENT: 1. Deep venous thrombosis of the left femoral and popliteal vein. 2. Chronic obstructive pulmonary disease. 3. Cellulitis of the right leg. 4. B12 deficiency. 5. Fibromyalgia. 6. Spinal stenosis. 7. Status post gastric sleeve. PLAN: The patient is currently comfortable. He is getting IV antibiotics. His INR is 1.6. He is o n 10 mg of Coumadin. The patient is on folic acid. He is on Lasix twice a day. He is on heparin un til his INR is therapeutic. He is on Protonix. He is going to continue Seroquel. He is receiving B 12. He is being followed by ID and hematology. I appreciate their input. Constantin Cervantes MD cc: [id number] TT: 06/06/2016 07:37:47 Confirmation # [id number] Dictation # [id number] en
[2016-06-06 08:35] LABS: INR 2.29 (0.93-1.08)
[2016-06-06] MEDS: Pantoprazole 40 mg EC Tab PO SCH (09:27)
[2016-06-06] MEDS: Vancomycin 1gm in NS 250ml 250 ML IVPB SCH ×2 (09:28→22:02)
[2016-06-06 20:13] VITALS: RESP 20; TEMP 98
[2016-06-06] MEDS: QUEtiapine 50 MG, QUEtiapine 100 MG PO SCH (22:02)
--- NOTE | 2016-06-06 22:36 | PN ---
DATE: 06/06/2016 The patient is in bed, no acute distress, was seen earlier this morning in room 360. PHYSICAL EXAMINATION: VITAL SIGNS: Temperature is 98, blood pressure is 120/70, respiratory rate of 16. HEENT: Unremarkable. NECK: Supple. LUNGS: Have decreased breath sounds. HEART: Normal S1, S2. ABDOMEN: Soft, nontender. LABORATORY DATA: Reveals the blood cultures are negative. White count is 4.2. ASSESSMENT AND PLAN: This is a 56-year-old male with right leg skin and skin structure infections an d left leg deep venous thrombosis, chronic obstructive pulmonary disease, dyslipidemia on vancomycin day #4, cultures are negative. Would complete 5-7 days of antibiotics. Review of the orders reveal s the patient's vancomycin to be active. We will order a vancomycin trough level. Review of the MAR reveals the patient to receive the vancomycin at 10 a.m. and 10 p.m. Will order trough level for t omorrow at 9 a.m. and follow with you. Steve Contreras MD cc: [phone] TT: 06/06/2016 22:35:48 Confirmation # [id number] Dictation # [id number] jn
--- NOTE | 2016-06-07 08:23 | DS ---
The patient has no complaints of any chest pain, no shortness of breath, no headaches. He initially was admitted to the hospital because of a DVT. He was placed on anticoagulation and he is therapeuti c at this point. He is going to be discharged home to follow up as an outpatient. He had a cellulit is that he was being treated for and that has improved. PHYSICAL EXAMINATION: VITAL SIGNS: Temperature is 98, pulse of 62, blood pressure is 126/75, respirations 20. GENERAL: The patient comfortable, in no acute distress. HEENT: Anicteric sclerae. Moist mucosa. NECK: No JVD or adenopathy. CARDIAC: S1/S2. No murmurs. No rubs. Regular. RESPIRATORY: Clear to auscultation bilaterally. No wheezes, rales, or rhonchi. Good air entry. ABDOMEN: Bowel sounds are positive, soft, nontender, and nondistended. EXTREMITIES: No edema. Has 1+ pulses. ASSESSMENT: 1. Left leg deep venous thrombosis. 2. Chronic obstructive pulmonary disease. 3. Cellulitis of the right leg. 4. B12 deficiency. 5. Fibromyalgia. 6. Spinal stenosis. 7. Status post gastric sleeve. PLAN: The patient is currently comfortable. He is on Coumadin. He is going to continue it. He is on Lasix. The patient is going to be on Lexapro. He is on Seroquel. He is on Xanax as needed. The patient is on a heart healthy diet. Constantin Cervantes MD cc: [phone] TT: 06/07/2016 08:18:51 en
[2016-06-07 09:55] VITALS: BP 133/78; PULSE 60; O2SAT 96
[2016-06-07] MEDS: Pantoprazole 40 mg EC Tab PO SCH (09:55)
[2016-06-07] MEDS: Vancomycin 1gm in NS 250ml 250 ML IVPB SCH (09:56)
--- NOTE | 2016-06-07 12:24 | PN ---
DATE: 06/07/2016 The patient seen earlier today in room 360, bed 2. No fevers and no chills. PHYSICAL EXAMINATION: VITAL SIGNS: Temperature is 98, blood pressure is 130/70, respiratory rate of 16. HEENT: Unremarkable. NECK: Supple. LUNGS: Have decreased breath sounds. HEART: Normal S1, S2. ABDOMEN: Soft. EXTREMITIES: The leg is much improved, almost resolved. LABORATORY DATA: Reveals the patient's white count is 4.2, hemoglobin of 10. BUN and creatinine is noted to be normal. Vancomycin trough of 16.9. Microbiology reveals the blood cultures are negative . Urine cultures are negative. ASSESSMENT AND PLAN: This is a 56-year-old male with right leg skin and skin structure infections, l eft leg deep venous thrombosis, chronic obstructive lung disease, dyslipidemia and vancomycin day #5, since resolved. Case discussed with Dr. Cervantes. Steve Contreras MD cc: [phone] TT: 06/07/2016 12:23:28 Confirmation # [id number] Dictation # [id number] imani
== END 2016-06-07 11:32 | disposition home or self-care (01) | DRG 300 ==
LOC: ED 12:58 → ERH 17:15 → 3RNO 18:24
PROVIDERS: ADMIT Internal Medicine Medical Oncology; ATTEND Internal Medicine Nephrology
DX: I82.412 Acute embolism and thrombosis of left femoral vein (principal); I82.432 Acute embolism and thrombosis of left popliteal vein; L03.115 Cellulitis of right lower limb; L03.116 Cellulitis of left lower limb; D68.59 Other primary thrombophilia; Z68.41 Body mass index [BMI] 40.0-44.9, adult; E66.01 Morbid (severe) obesity due to excess calories; J44.9 Chronic obstructive pulmonary disease, unspecified; E53.8 Deficiency of other specified B group vitamins; M79.7 Fibromyalgia; M48.00 Spinal stenosis, site unspecified; R53.82 Chronic fatigue, unspecified; M19.90 Unspecified osteoarthritis, unspecified site; K21.9 Gastro-esophageal reflux disease without esophagitis; G62.9 Polyneuropathy, unspecified; M10.9 Gout, unspecified; E78.5 Hyperlipidemia, unspecified; F32.9 Major depressive disorder, single episode, unspecified; R29.6 Repeated falls; F41.9 Anxiety disorder, unspecified; Z98.84 Bariatric surgery status; Z86.19 Personal history of other infectious and parasitic diseases

== ENCOUNTER 2016-06-15 19:26 | Observation (INO) | payer MEDICARE, OTHER ==
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
[2016-06-15 20:42] LABS: HEMATOCRIT 39.8 % (42.0-52.0); MEAN CELL VOLUME 95.4 fL (80.0-105.0); MEAN CORPUSCULAR HEMOGLOBIN 32.1 pg (25.0-35.0); MEAN CORPUSCULAR HGB CONC 33.7 g/dl (31.0-37.0); MEAN PLATELET VOLUME 9.7 fl (7.0-11.0); RED CELL DISTRIBUTION WIDTH 14.3 % (11.5-14.5); WHITE BLOOD COUNT 6.7 10^3/ul (4.5-11.0)
[2016-06-15 20:48] LABS: INR 2.28 (0.93-1.08); PARTIAL THROMBOPLASTIN TIME 35.2 Seconds (23.7-30.8)
[2016-06-15 21:32] LABS: ALB/GLOB RATIO 1.1 (1.1-1.8); ALKALINE PHOSPHATASE 65 U/L (38-133); ALT/SGPT 34 U/L (7-56); AST/SGOT 33 U/L (15-59); BILIRUBIN,TOTAL 0.6 mg/dL (0.2-1.3); BLOOD UREA NITROGEN 14 mg/dL (7-21); CALCIUM 8.6 mg/dL (8.4-10.5); CARBON DIOXIDE 30 mmol/L (21-33); CHLORIDE 102 mmol/L (98-107); GFR AFRICAN-AMERICAN > 60; GLUCOSE,RANDOM 82 mg/dL (70-110); POTASSIUM 4.6 mmol/L (3.6-5.0); SODIUM 138 mmol/L (132-148); TOTAL PROTEIN 6.4 g/dL (5.8-8.3)
[2016-06-15 21:47] LABS: TROPONIN I < 0.01 ng/mL
--- NOTE | 2016-06-16 00:34 | CP.PCM.PN ---
Subjective - Date & Time of Evaluation Date of Evaluation: 06/16/16 Time of Evaluation: 00:33 - Subjective Subjective: 56 year old male admitted with a syncopal episode. Patient's BP was 160/92 and he requested his xanax, lexapro , seroquel, that is why I was called. States that he does not have history of HTN. Medical record was reviewed. Has PMH of COPD, fibromyalgia, morbid obesity, chronic fatigue,DVT, Lyme's disease, unsteady gait, gastric sleeve surgery. Objective - Vital Signs/Intake and Output Vital Signs (last 24 hours): Temp Pulse Resp BP Pulse Ox 97.9 F 52 L 18 138/72 99 06/15/16 20:37 06/15/16 23:40 06/15/16 23:40 06/15/16 23:40 06/15/16 23:40 - Labs Labs: PT 24.6 Seconds (9.9-11.8) H 06/15/16 20:18 INR 2.28 (0.93-1.08) H 06/15/16 20:18 APTT 35.2 Seconds (23.7-30.8) H 06/15/16 20:18 - Constitutional Appears: Well, No Acute Distress - Head Exam Head Exam: ATRAUMATIC, NORMAL INSPECTION, NORMOCEPHALIC Additional comments: Obese person. - Eye Exam Eye Exam: Normal appearance - ENT Exam ENT Exam: Normal External Ear Exam - Neck Exam Neck Exam: Normal Inspection - Respiratory Exam Respiratory Exam: NORMAL BREATHING PATTERN - Cardiovascular Exam Cardiovascular Exam: absent: JVD - GI/Abdominal Exam GI & Abdominal Exam: absent: Distended - Rectal Exam Rectal Exam: Deferred - Extremities Exam Extremities Exam: Normal Inspection - Back Exam Back Exam: NORMAL INSPECTION - Neurological Exam Neurological Exam: Alert, Oriented x3 - Psychiatric Exam Psychiatric exam: Normal Affect, Normal Mood - Skin Skin Exam: Normal Color Assessment and Plan - Assessment and Plan (Free Text) Assessment: A/P:Syncope. Obesity. COPD. Fibromylagia. Depression. Recheck blood pressure in one hour. Will hold his home medications now till evaluated by neurologist.
[2016-06-16 02:05] VITALS: BMI 406805.6
[2016-06-16 05:59] VITALS: O2SAT 98
--- NOTE | 2016-06-16 07:20 | CT ---
PROCEDURE: CT HEAD WITHOUT CONTRAST. HISTORY: syncope COMPARISON: None available. TECHNIQUE: Axial computed tomography images were obtained through the head/brain without intravenous contrast. Radiation dose: Total exam DLP = 774 mGy-cm. This CT exam was performed using one or more of the following dose reduction techniques: Automated exposure control, adjustment of the mA and/or kV according to patient size, and/or use of iterative reconstruction technique. FINDINGS: HEMORRHAGE: No intracranial hemorrhage. BRAIN: No mass effect or edema. No atrophy or chronic microvascular ischemic changes. VENTRICLES: Unremarkable. No hydrocephalus. CALVARIUM: Unremarkable. PARANASAL SINUSES: Unremarkable as visualized. No significant inflammatory changes. MASTOID AIR CELLS: Unremarkable as visualized. No inflammatory changes. OTHER FINDINGS: None. IMPRESSION: Normal CT of the Head.
--- NOTE | 2016-06-16 09:30 | RAD ---
HISTORY: syncope COMPARISON: No prior. FINDINGS: LUNGS: No active pulmonary disease. PLEURA: No significant pleural effusion identified, no pneumothorax apparent. CARDIOVASCULAR: Normal. OSSEOUS STRUCTURES: No significant abnormalities. VISUALIZED UPPER ABDOMEN: Normal. OTHER FINDINGS: None. IMPRESSION: No active disease.
[2016-06-16] MEDS: DICLOFENAC SODIUM 75 MG PO SCH ×2 (10:31→17:06)
[2016-06-16] MEDS: Pantoprazole 40 mg EC Tab PO SCH (10:50)
[2016-06-16] MEDS: oxyCODONE 10 mg Immediate Release Tab PO PRN (13:10)
--- NOTE | 2016-06-16 14:56 | CARD ---
APPROVED REPORT EKG Measurement Heart [id number] MD [id number] <Conclusion> Sinus bradycardia Right bundle branch block Abnormal ECG
--- NOTE | 2016-06-16 18:57 | HP ---
HISTORY OF PRESENT ILLNESS: The patient is 56 years old with a multiple complicated prolonged medica l history. He stated yesterday his brought groceries and he was trying to help her and he reach ed the last step to enter his house and he felt very lightheaded and he almost passed out. Denies an y chest pain or palpitation prior to the episode, did not have any seizure-like activity. The patien t states his left leg is weak and and this is not first time that it has happened to him, he vasquez d multiple episodes in the past. He was recently admitted last month for neurological workup done. He had an EEG that was unremarkable. He even had cardiac cath done by Dr. Gerald Marcelo, and it was sup posedly negative. The patient denies any nausea, vomiting, no diarrhea. No chest pain. No history of hemoptysis, no history of hematemesis. PAST MEDICAL HISTORY: Is significant for: 1. COPD. 2. He states he has Lyme's disease that has more often neurological symptoms, that has affected his legs. 3. He has neuropathy. 4. He has retinopathy. 5. Chronic fatigue syndrome. 6. Morbid obesity and status post sleeve procedure for weight loss that he had 3years ago. He lost 160 pounds and got a couple pounds back. 7. History of deep venous thrombosis and he is on chronic anticoagulation. FAMILY HISTORY: Not available.. SOCIAL HISTORY: He is , lives with his . Denies smoking. Does drink here and there. ALLERGIES: HE IS ALLERGIC TO CEFTIN AND IODINE THAT CAUSES A RASH. MEDICATIONS AT HOME: He is on oxycodone 10 mg q.6, Coumadin 5 mg at bedtime, Prilosec 20 mg daily, g abapentin 900 three times a day, folic acid 1 mg daily, vitamin D, he is on Voltaren 75 twice a day, Zyrtec 10 mg daily, Xanax 2 mg 3 times a day, allopurinol 100 mg daily. REVIEW OF SYSTEMS: He does not have any weakness or dizziness. He does have difficulty walking. Hi s left leg always gives him more symptoms than the right and he states he feels better as long he is under the effect of gabapentin. PHYSICAL EXAMINATION: GENERAL: He is fully awake, alert, oriented, communicative. VITAL SIGNS: He is afebrile, pulse 56, respirations 19, blood pressure 164/95. LUNGS: Bilateral good airflow, no rhonchi or crackle. HEART: S1, S2 audible. ABDOMEN: Soft, obese, nontender, no rebound, no guarding. NEUROLOGIC: He is awake and alert, communicative. EXTREMITIES: Bilateral leg fair range of motion in both extremities. SKIN: Chronic stasis dermatitis both lower legs. LABORATORY DATA: WBC 6.7, hemoglobin 13.4, hematocrit 39.8, platelet of 171. PT 24.6, INR 2.28. Ch emistry: Sodium 138, potassium 4.6, chloride 102, CO2 of 30, BUN 14, creatinine 1.1, blood sugar of 82. LFTs are within normal limits. X-ray chest: No active disease. CT scan of the head unremarkab le. ASSESSMENT AND PLAN: 1. Near syncope, probably vasovagal. 2. Morbid obesity. 3. Neuropathy. 4. Deconditioning and difficulty walking. 5. History of deep venous thrombosis in the past. 6. History of chronic obstructive pulmonary disease. 7. Chronic fatigue syndrome. 8. Spinal stenosis. PLAN: Will monitor her cardiac enzyme. Will start him on his regular usual medication including Cou madin 5 mg daily, starting folic 1 mg daily. He is on gabapentin 900 three times a day. He is on ox ycodone and Protonix. I will order for a carotid Doppler. He had a MRI of the brain done almost a m onth ago and cath and echocardiogram. He will be watched closely and disposition plans will be made in a.m. after evaluated by iv therapy nurse and neurologist. Magdaleno Gomez MD cc: [phone] TT: 06/16/2016 18:56:27 reno
--- NOTE | 2016-06-16 20:02 | CON ---
DATE: 06/16/2016 HISTORY OF PRESENT ILLNESS: This is a 56-year-old male with a past medical history of COPD, fibromya lgia, fatigue, Lyme disease, unsteady gait, gastric sleeve surgery, came here with a syncopal e pisode. I was called to evaluate the patient. The patient has been having peripheral neuropathy for a long time. His symptoms had resolved with high doses of gabapentin. PAST MEDICAL HISTORY: Fibromyalgia, chronic fatigue syndrome, Lyme. PAST SURGICAL HISTORY: Status post gastric sleeve surgery. VITAL SIGNS: Blood pressure 138/72. ALLERGIES: No known drug allergy. PHYSICAL EXAMINATION: HEENT: Normocephalic, atraumatic. NECK: Supple. NEUROLOGIC: Awake, alert, oriented to self and place. No aphasia. Cranial nerves II through XII we re tested. Pupils reactive. EOM intact. Visual mcgrath full. No facial asymmetry. Tongue midline. Motor examination: Able to ambulate with a cane. strength 5/5. Tone normal. Deep tendon r eflexes 1+. Both plantars are downgoing. Sensory appears intact. Cerebellar, gait, able to ambulat e with a cane. IMPRESSION: Peripheral neuropathy and multiple medical problems, COPD, fibromyalgia, chronic fatigue syndrome, Lyme's disease. PLAN: Continue present management. We will follow up. Physical therapy for gait training. David West MD cc: [id number] TT: 06/16/2016 20:01:58 Confirmation # [id number] Dictation # [id number] sophia
--- NOTE | 2016-06-16 21:09 | CON ---
DATE: 06/16/2016 The patient is in room 264, bed 1. I am doing this consult on behalf of Dr. Marcelo, whom I am covering. REASON FOR CONSULTATION: Questionable syncopal episode. HISTORY OF PRESENT ILLNESS: The patient is a 56-year-old male who has a history of severe bradycardi a for many years, morbid obesity, COPD, Lyme disease, neuropathy, thrombophlebitis x 2, fibromyalgia, gout, high cholesterol, chronic fatigue syndrome, admitted with a history that he was going up stair s and he suddenly lost his balance and he fell down. He denies loss of consciousness. He states marina t he knew he was falling down. He denies any chest pain, palpitation, diaphoresis, nausea, vomiting associated with this episode. PAST MEDICAL HISTORY: Is positive for Lyme disease, neuropathy, thrombophlebitis, fibromyalgia, high cholesterol, chronic fatigue syndrome. He had a gastric bypass surgery for loss of weight. He also has inferior vena cava filter insertion because of 2 episodes of thrombophlebitis in the legs. PERSONAL HISTORY: Denies smoking, drinks socially. ALLERGIES: HE SAYS HE IS ALLERGIC TO IODINE AND CEFTIN. FAMILY HISTORY: Positive for diabetes mellitus. MEDICATIONS: At home: He takes oxycodone p.r.n., warfarin 5 mg daily, omeprazole 20 daily, gabapent in 900 t.i.d., folic acid 1 mg daily, allopurinol 100 mg daily, Voltaren 75 b.i.d. CARDIAC WORKUP: The patient had cardiac catheterization 05/21/2016, which showed normal coronaries an d LV ejection fraction of 55%. The patient had echo on , which showed normal size LV, borderl ine left ventricular hypertrophy, normal LV systolic function with ejection fraction of 65%, grade I diastolic dysfunction. REVIEW OF SYSTEMS: All the systems were reviewed; positives mentioned in the history, others were ne gative. PHYSICAL EXAMINATION: VITAL SIGNS: Blood pressure 164/95. Yesterday blood pressure 138/72. Earlier blood pressure in the morning was 113/72. Respirations 20, pulse 47, and temperature 97.4. HEENT: Head is normocephalic. Eyes: Pupils normal. Conjunctivae slightly pale. NECK: JVP low. Carotid equal. THORAX: AP diameter normal. LUNGS: Clear. CARDIOVASCULAR: S1, S2. ABDOMEN: Protuberant, no organomegaly. EXTREMITIES: No clubbing, no cyanosis. LABORATORY DATA: WBC 6.7, hemoglobin 13.4, hematocrit 39.8, platelets 171. Sodium 138, potassium 4. 6, BUN 14, creatinine 1.1. Troponin less than 0.01, total protein 6.4, albumin 3.4. Chest x-ray: N o acute findings. EKG: Sinus bradycardia at 46 per minute, right bundle branch block. DIAGNOSES: Fall, rule out syncope, sinus bradycardia, has a history for many years of bradycardia; c hronic obstructive pulmonary disease, morbid obesity, neuropathy, history of Lyme disease, history of thrombophlebitis, fibromyalgia, gout, high cholesterol, chronic fatigue syndrome. The patient already had catheterization 05/21/2016, normal coronaries, EF 55%. Echo 05/14/2016 also jayda wed no significant abnormality with an ejection fraction of 65%. PLAN: The patient on warfarin 5 mg daily and his prothrombin time is 24.6, INR 2.28; gabapentin 900 mg t.i.d., Protonix 40 daily, Eliquis 100 mg daily, Xanax 2 mg t.i.d., folic acid 1 mg daily, ergocal ciferol 1 capsule p.o. , Claritin 10 mg p.o. daily. The patient will be monitored on telemetry and Dr. Marcelo will follow the patient's starting tomorrow morning. Louise Robertson MD cc: [phone] TT: 06/16/2016 21:08:45 Confirmation # [id number] Dictation # [id number] dn
[2016-06-17] MEDS: Pantoprazole 40 mg EC Tab PO SCH (07:53)
--- NOTE | 2016-06-17 08:02 | PN ---
DATE: 06/17/2016 SUBJECTIVE: The patient has no complaints of any chest pain, no shortness of breath, no headaches or dizziness. PHYSICAL EXAMINATION: VITAL SIGNS: Temperature is 97.8, pulse of 48, blood pressure 145/78, respirations 28. GENERAL: The patient comfortable, in no acute distress. HEENT: Anicteric sclerae. Moist mucosa. NECK: No JVD or adenopathy. CARDIAC: S1/S2. No murmurs. No rubs. Regular. RESPIRATORY: Clear to auscultation bilaterally. No wheezes, rales, or rhonchi. Good air entry. ABDOMEN: Bowel sounds are positive, soft, nontender, and nondistended. EXTREMITIES: No edema. Has 1+ pulses. ASSESSMENT: 1. Presyncope. 2. Peripheral neuropathy, spinal stenosis, chronic fatigue syndrome, chronic obstructive pulmonary d isease; deep venous thrombosis, on anticoagulation. 3. Deconditioning. 4. Chronic fatigue syndrome. 5. History of gastric sleeve. PLAN: The patient is currently comfortable. He was seen by Dr. West from neurology. He was seen by Dr. Robertson. The patient is on Coumadin. He is on folic acid. He is going to continue with gabap entin for neuropathy. He is on Xanax. He is on allopurinol. The patient has physical therapy that has been ordered. His INR has been therapeutic. Will await input from physical therapy and the con sultants. Constantin Cervantes MD cc: [id number] TT: 06/17/2016 08:01:40 Confirmation # [id number] Dictation # [id number] mn
[2016-06-17] MEDS: oxyCODONE 10 mg Immediate Release Tab PO PRN (08:21)
[2016-06-17] MEDS: DICLOFENAC SODIUM 75 MG PO SCH (09:56)
--- NOTE | 2016-06-17 11:52 | PN ---
DATE: 06/17/2016 CARDIOLOGY FOLLOWUP The patient is feeling well. He is eating well. PHYSICAL EXAMINATION: VITAL SIGNS: Blood pressure is 145/78. The heart rate is 50, normal sinus rhythm. NECK: Negative JVD. LUNGS: Without rales. HEART: Reveals S1, S2. EXTREMITIES: Without edema. LABORATORIES: Reveal troponins that are negative. IMPRESSION: 1. Status post fall, likely due to a mechanical fall with weakness of his lower extremities from his neuropathy. 2. Hypertension. 3. Sinus bradycardia, which is chronic. 4. Questionable history of Lyme disease. PLAN: Given these findings, the patient's cardiac status is stable. No further cardiac workup is ne cessary at this time. We will discontinue telemetry. Gerald Marcelo MD cc: [id number] TT: 06/17/2016 09:02:11 Confirmation # [id number] Dictation # [id number] imani
[2016-06-17 12:35] VITALS: BP 112/72; PULSE 51; RESP 18; TEMP 98.2
[2016-06-19] MEDS ORDERED: Ergocalciferol 50,000 Intl Units Cap PO SCH (10:00)
--- NOTE | 2016-06-30 14:21 | DS ---
Please see the note that was dictated on 06/17/2016. The patient was discharged home. The patient wa s seen by Dr. Marcelo and he felt that the patient's cardiac status was stable. Constantin Cervantes MD cc: [id number] TT: 06/30/2016 14:20:40 en
== END 2016-06-17 16:31 | disposition home or self-care (01) ==
LOC: ED 19:26 → ERH 22:59 → 2RNO 06-16
PROVIDERS: ADMIT Internal Medicine Nephrology; ATTEND Internal Medicine Nephrology
DX: R55 Syncope and collapse (principal); G62.9 Polyneuropathy, unspecified; I10 Essential (primary) hypertension; R00.1 Bradycardia, unspecified; A69.20 Lyme disease, unspecified; E66.01 Morbid (severe) obesity due to excess calories; J44.9 Chronic obstructive pulmonary disease, unspecified; M79.7 Fibromyalgia; Z86.718 Personal history of other venous thrombosis and embolism; M10.9 Gout, unspecified; E78.00 Pure hypercholesterolemia, unspecified; R53.82 Chronic fatigue, unspecified; Z91.81 History of falling; Z83.3 Family history of diabetes mellitus; Z86.72 Personal history of thrombophlebitis; Z79.899 Other long term (current) drug therapy; Z79.01 Long term (current) use of anticoagulants; F32.89 Other specified depressive episodes; F43.10 Post-traumatic stress disorder, unspecified; H35.00 Unspecified background retinopathy; I45.10 Unspecified right bundle-branch block; J45.909 Unspecified asthma, uncomplicated; K21.9 Gastro-esophageal reflux disease without esophagitis; M48.00 Spinal stenosis, site unspecified; Z90.49 Acquired absence of other specified parts of digestive tract; Z98.84 Bariatric surgery status; Z88.8 Allergy status to other drugs, medicaments and biological substances; R26.2 Difficulty in walking, not elsewhere classified; I87.2 Venous insufficiency (chronic) (peripheral); R53.81 Other malaise; Z68.41 Body mass index [BMI] 40.0-44.9, adult
CPT/HCPCS: 70450; 71010; 80053; 82550; 83615; 84484; 85027; 85610; 85730; 93005; 97116; 97161; 99285; G0378; G8978; G8979

== ENCOUNTER 2016-06-28 18:14 | Observation (INO) | payer MEDICARE, OTHER ==
[2016-06-28 18:18] VITALS: BMI 43.0
[2016-06-28 18:40] VITALS: TEMP 98.5
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
--- NOTE | 2016-06-28 23:28 | CT ---
EXAM: CT Lumbar Spine Without Intravenous Contrast CLINICAL HISTORY: 56 years old, male; Injury or trauma; Fall; Initial encounter; Abrasion; Additional info: R/O FX TECHNIQUE: Axial computed tomography images of the lumbar spine without intravenous contrast. This CT exam was performed using one or more of the following dose reduction techniques: automated exposure control, adjustment of the mA and/or kV according to patient size, and/or use of iterative reconstruction technique. Coronal and sagittal reformatted images were created and reviewed. COMPARISON: No prior study for comparison. FINDINGS: 5 cm lesion with peripheral calcification the lateral aspect of right kidney, incompletely evaluated on current study. IVC filter. There is no evidence for fracture of the lumbar vertebrae. The is no acute subluxation. No suspicious lytic or blastic bony lesions are seen. Multilevel degenerative changes. Degenerative disc disease with disc bulging. Facet arthropathy/uncovertebral hypertrophy. Some impression on the central canal and neuroforaminal narrowing. Findings most significant at L5-S1. No severe central canal stenosis. IMPRESSION: Negative for acute fracture. 5 cm lesion with peripheral calcification the lateral aspect of right kidney, incompletely evaluated on current study. IVC filter. Degenerative changes.
[2016-06-28 23:39] VITALS: O2SAT 98
--- NOTE | 2016-06-29 01:03 | CT ---
EXAM: CT Pelvis Without Intravenous Contrast CLINICAL HISTORY: 56 years old, male; Injury or trauma; Fall; Initial encounter; Abrasion; Bilateral; Hip; Additional info: B/l hip pain S/P fall. R/O FX TECHNIQUE: Axial computed tomography images of the pelvis without intravenous contrast. This CT exam was performed using one or more of the following dose reduction techniques: automated exposure control, adjustment of the mA and/or kV according to patient size, and/or use of iterative reconstruction technique. EXAM DATE/TIME: 06/28/2016 7:40 PM COMPARISON: US - AORTA, IVC, ILIAC DUPLEX 06/03/2016 9:38:08 AM FINDINGS: Bowel: There is a nonobstructive gas pattern in the pelvis. Appendix and terminal ileum are unremarkable. There is scattered diverticulosis. Appendix: See stomach and bowel Intraperitoneal space:There is no free air or free fluid. Bladder: unremarkable Reproductive: Seminal vesicles and prostate are unremarkable. Bones/joints: Bony structures are diffusely osteopenic. There are degenerative changes in the lower lumbar spine. There is mild loss of height of L4. There is disc space narrowing greatest L5/S1. There is degenerative facet disease There are no pelvic fractures. Sacroiliac joints are asymmetric. There is relative widening of the left sacroiliac joint compared to the right. Subtle lucency through the right sacral ala suggests nondisplaced fracture, image 43 series 2, image 75 series 605. There are no hip fractures. Soft tissues: There is a small fat containing umbilical hernia. Vasculature: There are vascular calcifications. Lymph nodes: unremarkable IMPRESSION: Osteopenia and degenerative change; probable nondisplaced right sacral fracture; asymmetry of the sacroiliac joints with possible diastases of the left sacroiliac joint; no hip fracture Additional findings as described above.
[2016-06-29 01:56] VITALS: BP 132/83; PULSE 68; RESP 16
== END 2016-06-29 01:39 | disposition home or self-care (01) ==
LOC: ED 18:14 → EROBSV 21:00
PROVIDERS: ADMIT Emergency Medicine; ATTEND Emergency Medicine
DX: M54.9 Dorsalgia, unspecified (principal); A69.20 Lyme disease, unspecified; G62.9 Polyneuropathy, unspecified; Z91.81 History of falling
CPT/HCPCS: 72131; 72192; 99285; G0378

== ENCOUNTER 2016-08-25 22:29 | Emergency (ER) | payer MEDICARE, OTHER ==
[2016-08-25 22:38] VITALS: BMI 41.1
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
[2016-08-25 23:37] LABS: BASO # 0.02 K/mm3 (0.0-2.0); BASO % 0.3 % (0.0-3.0); EOS # 0.1 (0.0-0.7); EOS % 1.6 % (1.5-5.0); GRAN # 3.29 (1.4-6.5); GRAN % 52.6 % (50.0-68.0); LYMPH # 2.2 (1.2-3.4); LYMPH % 35.3 % (22.0-35.0); MEAN CELL VOLUME 90.5 fL (80.0-105.0); MEAN CORPUSCULAR HEMOGLOBIN 30.8 pg (25.0-35.0); MEAN PLATELET VOLUME 9.9 fl (7.0-11.0); MONO # 0.6 (0.1-0.6); MONO % 10.2 % (1.0-6.0); PLATELET COUNT 162 10^3/uL (120.0-450.0); RBC 4.22 10^6/uL (3.5-6.1); RED CELL DISTRIBUTION WIDTH 14.5 % (11.5-14.5); WHITE BLOOD COUNT 6.3 10^3/ul (4.5-11.0)
[2016-08-25 23:41] LABS: ALB/GLOB RATIO 1.2 (1.1-1.8); ALBUMIN 4.2 g/dL (3.0-4.8); ALT/SGPT 25 U/L (7-56); AST/SGOT 44 U/L (15-59); BLOOD UREA NITROGEN 17 mg/dL (7-21); CALCIUM 9.4 mg/dL (8.4-10.5); GFR AFRICAN-AMERICAN > 60; GFR NON-AFRICAN AMERICAN > 60
[2016-08-25 23:44] LABS: INR 3.45 (0.93-1.08); PARTIAL THROMBOPLASTIN TIME 45.4 Seconds (23.7-30.8); PROTHROMBIN TIME 37.3 Seconds (9.9-11.8)
--- NOTE | 2016-08-26 00:34 | CT ---
EXAM: CT Head Without Intravenous Contrast CLINICAL HISTORY: 56 years old, male; Signs and symptoms; Altered mental status/memory loss; Additional info: Head trauma, altered mental status TECHNIQUE: Axial computed tomography images of the head/brain without intravenous contrast. This CT exam was performed using one or more of the following dose reduction techniques: automated exposure control, adjustment of the mA and/or kV according to patient size, and/or use of iterative reconstruction technique. COMPARISON: CT - HEAD W/O CONTRAST 06/15/2016 8:20:02 PM FINDINGS: Brain: Notable intracranial vascular calcification. Evidence of mild chronic ischemic small vessel changes. No hemorrhage. No edema. Ventricles: No hydrocephalus. Bones: Skull is intact. Sinuses: Mild paranasal sinus disease partially visualized, most notably involving the right sphenoid sinus. No acute sinusitis. Mastoid air cells: No mastoid effusion. IMPRESSION: No CT evidence of acute intracranial abnormality. Please see details/findings as above.
[2016-08-26 05:53] LABS: BARBITURATES, UR NEGATIVE (NEGATIVE); BENZODIAZEPINES, UR POSITIVE (NEGATIVE); OPIATES, UR NEGATIVE (NEGATIVE); PHENCYCLIDINE, UR NEGATIVE (NEGATIVE)
--- NOTE | 2016-08-26 07:12 | ED PDOC ---
Physical Exam Vital Signs Reviewed: Yes Vital Signs Temp Pulse Resp BP Pulse Ox 08/26/16 13:54 58 L 16 129/73 98 08/26/16 11:00 48 L 18 143/102 H 98 08/26/16 09:47 97.4 F L 58 L 16 138/75 99 08/26/16 07:30 66 16 128/77 98 08/26/16 05:33 66 18 141/71 99 08/26/16 03:00 64 17 148/80 99 08/25/16 22:45 98.2 F 79 18 152/80 H 100 Temperature: Afebrile Blood Pressure: Hypertensive Pulse: Regular Respiratory Rate: Normal Finger Stick Blood Glucose: 77 Medical Decision Making ED Course and Treatment: 08/26/16 07:12 Patient endorsed to me by Dr. Toribio at 07:00. Patient is medically cleared. Pending psych transfer and final disposition. 08/26/16 14:32 Patient was medically cleared by Dr. Lynnette Becerra, who is allowing patient to sign out AMA. - Lab Interpretations Lab Results: 08/25/16 23:20 08/25/16 23:20 Lab Results 08/26/16 09:00: Urine Color Yellow, Urine Appearance Clear, Urine pH 6.0, Ur Specific [place] >= 1.030, Urine Protein Negative, Urine Glucose (UA) Negative, Urine Ketones 15 H, Urine Blood Small H, Urine Nitrate Negative, Urine Bilirubin Small H, Urine Urobilinogen 1.0 H, Ur Leukocyte Esterase Negative, Urine RBC 2 - 5, Urine WBC 0 - 2, Ur Epithelial Cells 0 - 2, Urine Bacteria Trace 08/26/16 05:22: Urine Opiates Screen Negative, Urine Methadone Screen Negative, Ur Barbiturates Screen Negative, Ur Phencyclidine Scrn Negative, Ur Amphetamines Screen Positive H, U Benzodiazepines Scrn Positive H, U Oth Cocaine Metabols Negative, U Cannabinoids Screen Negative 08/25/16 23:20: PT 37.3 H*, INR 3.45 H, APTT 45.4 H 08/25/16 23:20: Alcohol, Quantitative < 10 08/25/16 23:20: Sodium 138, Potassium 4.2, Chloride 102, Carbon Dioxide 24, Anion Gap 16, BUN 17, Creatinine 1.0, Est GFR ( Amer) > 60, Est GFR (Non- Af Amer) > 60, Random Glucose 84, Calcium 9.4, Total Bilirubin 1.0, AST 44, ALT 25, Alkaline Phosphatase 79, Total Protein 7.8, Albumin 4.2, Globulin 3.6, Albumin/Globulin Ratio 1.2 08/25/16 23:20: WBC 6.3, RBC 4.22, Hgb 13.0 L, Hct 38.2 L, MCV 90.5, MCH 30.8, MCHC 34.0, RDW 14.5, Plt Count 162, MPV 9.9, Gran % 52.6, Lymph % (Auto) 35.3 H , [place] % (Auto) 10.2 H, Eos % (Auto) 1.6, Baso % (Auto) 0.3, Gran # 3.29, Lymph # 2.2, [place] # 0.6, Eos # 0.1, Baso # 0.02 08/25/16 22:47: POC Glucose (mg/dL) 77 - RAD Interpretation Radiology Orders: 08/25/16 22:51 HEAD W/O CONTRAST [CT] Stat 08/25/16 22:54 CHEST PORTABLE [RAD] Stat - Medication Orders Current Medication Orders: Discontinued Medications Gabapentin (Neurontin) 900 mg PO STAT STA PRN Reason: Protocol Stop: 08/26/16 09:28 Last Admin: 08/26/16 09:49 Dose: 900 mg - Scribe Statement The provider has reviewed the documentation as recorded by the Barbara Turner Provider Scribe Attestation: All medical record entries made by the Ivanibeddie were at my direction and personally dictated by me. I have reviewed the chart and agree that the record accurately reflects my personal performance of the history, physical exam, medical decision making, and the department course for this patient. I have also personally directed, reviewed, and agree with the discharge instructions and disposition. Disposition/Present on Arrival - Present on Arrival Any Indicators Present on Arrival: No History of DVT/PE: Yes History of Uncontrolled Diabetes: No Urinary Catheter: No History of Decub. Ulcer: No History Surgical Site Infection Following: None - Disposition Have Diagnosis and Disposition been Completed?: Yes Diagnosis: PTSD (post-traumatic stress disorder) Disposition: HOME/ ROUTINE Disposition Time: 13:15 Condition: STABLE Discharge Instructions (ExitCare): Post Traumatic Stress Disorder (ED) Additional Instructions: You were treated for [Diagnosis Here]. The emergency medical care you received today was directed at your acute symptoms. If you were prescribed any medication , please fill it and take as directed. It may take several days for your symptoms to resolve. Return to the Emergency Department if your symptoms worsen , do not improve, or if you have any other problems. Please contact your doctor or call one of the physicians/clinics you have been referred to that are listed on the Patient Visit Information form that is included in your discharge packet. Bring any paperwork you were given at discharge with you along with any medications you are taking to your follow up visit. Our treatment cannot replace ongoing medical care by a primary care provider (PCP) outside of the emergency department. Thank you for allowing the [facility] team to be part of your care today. Follow up with your psychiatrist in the next 2-3 days. Referrals: Rohan Lara MD [Primary Care Provider] - Follow up with primary
--- NOTE | 2016-08-26 08:04 | RAD ---
HISTORY: AMS COMPARISON: 06/15/2016. FINDINGS: LUNGS: The lungs are well inflated and clear. PLEURA: No significant pleural effusion identified, no pneumothorax apparent. CARDIOVASCULAR: Normal. OSSEOUS STRUCTURES: No significant abnormalities. VISUALIZED UPPER ABDOMEN: Normal. OTHER FINDINGS: None. IMPRESSION: No active pulmonary disease.
[2016-08-26 09:36] LABS: URINE BILIRUBIN SMALL (NEGATIVE); URINE BLOOD SMALL (NEGATIVE); URINE GLUCOSE (UA) NEGATIVE (NEGATIVE); URINE LEUKOCYTE ESTERASE NEGATIVE Leu/uL (NEGATIVE); URINE NITRATE NEGATIVE (NEGATIVE); URINE PROTEIN NEGATIVE mg/dL (<30 mg/dL)
[2016-08-26 09:37] LABS: URINE APPEARANCE CLEAR (CLEAR); URINE COLOR YELLOW (YELLOW)
[2016-08-26 09:47] LABS: URINE BACTERIA TRACE (NEG); URINE EPITHELIAL CELLS 0 - 2 /hpf (0-5); URINE WBC 0 - 2 /hpf (0-6)
[2016-08-26 13:54] VITALS: RESP 16
[2016-08-26 15:26] VITALS: BP 132/77; PULSE 62; TEMP 98; O2SAT 99
--- NOTE | 2016-08-26 15:49 | CP.PCM.PCO ---
Physician Communication Note - Physician Communication Note Physician Communication Note: pt denied SI/HI, has f/u appt , has meds at home, supportive
--- NOTE | 2016-08-26 17:15 | CARD ---
APPROVED REPORT EKG Measurement Heart [id number] <Conclusion> Normal sinus rhythm Right bundle branch block Abnormal ECG
== END 2016-08-26 15:00 | disposition home or self-care (01) ==
LOC: ED 22:29
DX: F43.10 Post-traumatic stress disorder, unspecified (principal); W22.09XA Striking against other stationary object, initial encounter; Y93.E5 Activity, floor mopping and cleaning; Y92.008 Other place in unspecified non-institutional (private) residence as the place of occurrence of the external cause; F31.9 Bipolar disorder, unspecified; Z86.718 Personal history of other venous thrombosis and embolism; Z79.01 Long term (current) use of anticoagulants
CPT/HCPCS: 70450; 71010; 80053; 81001; 82948; 85025; 85610; 85730; 90791; 93005; 99285; G0480